=== PATIENT | female | born 1955 | race African-American/Black ===

== ENCOUNTER 2023-02-03 10:39 | Outpatient (CLI) | payer MEDICARE, SELFPAY ==
--- NOTE | ~2023-02-03 | XR_ITS ---
XR_[id number] 02/03/2023 12:52 Indication: Cervical radiculopathy Procedure: 3 view cervical spine Comparison: No prior studies for comparison. Findings: There is moderate multilevel uncinate and facet hypertrophy. No prevertebral soft tissue sw elling. Vertebral body heights are maintained. There is normal odontoid process. No fracture or traum atic malalignment. Lung apices are normal. Impression: 1: Moderate cervical spondylosis. Reviewed, dictated and finalized at location B. Impression: 1: Moderate cervical spondylosis.
[2023-02-03 11:24] LABS: Blood Urea Nitrogen 12 mg/dL (7-17); Estimated Glomerular Filt Rate > 60
== END 2023-02-03 10:40 | disposition home or self-care (01) ==
PROVIDERS: PCP Nurse Practitioner Family; Visit Provider Nurse Practitioner Family
DX: M47.22 Other spondylosis with radiculopathy, cervical region (principal); R07.9 Chest pain, unspecified
CPT/HCPCS: 36415; 72040; 82565; 84520

== ENCOUNTER 2023-12-23 14:58 | Outpatient (CLI) | payer MEDICARE, SELFPAY ==
--- NOTE | ~2023-12-23 | MM_ITS ---
EXAMINATION: MM screening erika BI w didi HISTORY: Screening TECHNIQUE: Craniocaudal and mediolateral oblique 3-D tomosynthesis images were obtained and synthetic 2-D images were generated. CAD analysis was submitted and interpreted. COMPARISON: No prior mammogram is available for comparison at this institution. BREAST PARENCHYMAL COMPOSITION: There are scattered areas of fibroglandular density. FINDINGS: Benign axillary lymph nodes are present bilaterally. Benign-appearing right breast mass con taining coarse calcifications present. There is no evidence of suspicious mass, calcification, or arc hitectural distortion to suggest malignancy in either breast. There has been no suspicious interval c hange. IMPRESSION: 1. No mammographic evidence of malignancy. 2. Recommend routine screening mammography in one year. BI-RADS Category 2: Benign finding(s). Reviewed, dictated and finalized at location A.
== END 2023-12-23 14:59 | disposition home or self-care (01) ==
PROVIDERS: PCP Nurse Practitioner Family; Visit Provider Nurse Practitioner Family
DX: Z12.31 Encounter for screening mammogram for malignant neoplasm of breast (principal)
CPT/HCPCS: 77063; 77067

== ENCOUNTER 2024-06-17 10:03 | Emergency (ER) | payer MEDICARE, SELFPAY ==
--- NOTE | ~2024-06-17 | XR_ITS ---
EXAMINATION: XR ankle RT min 3V, XR foot RT min 3V DATE: 06/17/2024 14:08 INDICATION: Right foot and ankle pain with difficulty walking TECHNIQUE: 1. Anteroposterior, mortise, additional oblique and lateral view of the right ankle were obtained. 2. Dorsoplantar, two oblique and lateral views of the right foot were obtained. COMPARISON: None. FINDINGS: Alignment of the right foot and ankle is normal. No fracture. Osteonecrosis with varying degrees of f lattening of the articular surfaces at the heads of the second-fifth metatarsals. There is also polya rticular osteoarthritis, severe at the second tarsal metatarsal joint, moderate at the first, third a nd fourth tarsal metatarsal joints, talonavicular, naviculocuneiform and first metatarsophalangeal duc ints. Mild to moderate osteoarthritis at the interphalangeal joints. Mild osteoarthritis at the right ankle, calcaneocuboid and fifth tarsal metatarsal joints. Moderate-sized Achilles calcaneal spur and small plantar calcaneal spur. There is diffuse soft tissue swelling about the ankle. IMPRESSION: 1. 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 Reviewed, dictated and finalized at location A. IMPRESSION: 1. Moderate polyarticular osteoarthritis at the right foot and chronic osteonec rosis at the heads of the second-fifth metatarsals.
[2024-06-17 10:12] VITALS: BP 168/75; PULSE 76; RESP 18; TEMP 36.1; O2SAT 100
--- NOTE | 2024-06-17 13:52 | ED.EXTPRO ---
HPI - Extremity Problem General Chief complaint: Extremity Problem,Nontraumatic Stated complaint: R FOOT PAIN X1 DAYS Time Seen by Provider: 06/17/24 12:50 History of Present Illness HPI Narrative: 68-year-old female present to the emergency department for evaluation for right ankle and right foot pain. Patient states that she began having foot pain since yesterday. Patient denies any specific fall or injury. Patient did notice that she does have some worsening right ankle swelling Related Data Allergies Allergy/AdvReac Type Severity Reaction Status Date / Time No Known Allergies Allergy Verified 06/17/24 10:07 Review of Systems Review of Systems: All systems reviewed & are unremarkable except as noted in HPI and below Exam Narrative: APPEARANCE: Well appearing, no pain, no distress, well-nourished. HEAD: normocephalic, atraumatic. EYES: PERRLA/EOMI, conjunctivae clear. NOSE: Normal no drainage NECK: Supple. No adenopathy, no masses. RESPIRATORY: Airway patent, respirations nonlabored. Clear to auscultation bilaterally, no rales, rhonchi, wheezing. CARDIOVASCULAR: Regular rate and rhythm without murmurs rubs or gallops. ABDOMINAL: Soft, nontender, nondistended, normal bowel sounds MUSCULOSKELETAL: Right lateral ankle swelling NEURO: Alert. Cranial nerves II through XII intact. Grossly intact SKIN: Warm, dry. Normal Color Course Vital Signs Vital signs: Vital Signs Temperature 97.0 F L 06/17/24 10:12 Pulse Rate 76 06/17/24 10:12 Respiratory Rate 18 06/17/24 10:12 Blood Pressure 168/75 H 06/17/24 10:12 Pulse Oximetry 100 06/17/24 10:12 Oxygen Delivery Room Air 06/17/24 10:12 Temperature 97.8 F 06/17/24 15:29 Pulse Rate 64 06/17/24 15:29 Respiratory Rate 17 06/17/24 15:29 Blood Pressure 130/64 06/17/24 15:29 Pulse Oximetry 98 06/17/24 15:29 Oxygen Delivery Room Air 06/17/24 10:12 MDM - Extremity (Nontraumatic) MDM Narrative Medical decision making narrative: 68-year-old female presented emergency department for evaluation for right foot right ankle pain. Patient denies any acute injury. X-rays did show osteoarthritis and possible osteonecrosis of the foot. Patient was provided an Ramez wrap and crutches for suspected ankle sprain due to the physical exam. Differential Diagnosis Differential diagnosis: Likely other (Ankle sprain, ankle fracture, foot sprain, foot fracture, osteoarthritis) Imaging Data Radiologist's impression: Impressions Ankle X-Ray 06/17/24 14:19 IMPRESSION: 1. 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 Foot X-Ray 06/17/24 14:19 IMPRESSION: 1. 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 Discharge Plan Discharge Clinical Impression: Osteoarthritis, Osteonecrosis, Ankle strain Patient Disposition: Home, Self-Care Condition: Stable Instructions: Antibiotic Form, Ankle Sprain (DC), Osteoarthritis (DC) Additional Instructions: Ramez wrap for increased ankle stability, crutches for limited weight-bearing. Have close follow-up with Orthopedics. If you have any worsening symptoms then please call or return to the emergency department. Follow-up/Referrals: Bobby Benjamin MD [Physician] - [facility],SLIM Granda [Primary Care Provider] -
[2024-06-17 15:29] VITALS: BP 130/64; PULSE 64; RESP 17; TEMP 36.6; O2SAT 98
== END 2024-06-17 15:34 | disposition home or self-care (01) ==
PROVIDERS: Emergency Provider Emergency Medicine; PCP Nurse Practitioner Family
DX: S96.911A Strain of unspecified muscle and tendon at ankle and foot level, right foot, initial encounter (principal); M19.071 Primary osteoarthritis, right ankle and foot; M87.874 Other osteonecrosis, right foot; X58.XXXA Exposure to other specified factors, initial encounter
CPT/HCPCS: 73610; 73630; 99283

== ENCOUNTER 2025-01-26 08:58 | Outpatient (CLI) | payer MEDICARE, SELFPAY ==
--- NOTE | ~2025-01-26 | MM_ITS ---
EXAMINATION: MM screening erika BI w didi HISTORY: Screening TECHNIQUE: Craniocaudal and mediolateral oblique 3-D tomosynthesis images were obtained and synthetic 2-D images were generated. CAD analysis was submitted and interpreted. COMPARISON: 12/23/2023 BREAST PARENCHYMAL COMPOSITION: Not dense: There are scattered areas of fibroglandular density. FINDINGS: There is no evidence of suspicious mass, calcification, or architectural distortion to sugg est malignancy in either breast. There has been no suspicious interval change. IMPRESSION: 1. No mammographic evidence of malignancy. 2. Recommend routine screening mammography in one year. BI-RADS Category 1: Negative Reviewed, dictated and finalized at location A.
--- NOTE | ~2025-01-26 | DEXA_ITS ---
Bone Density Report Name: JOHN HENDERSON Age: 69 Sex: Female Ethnicity: Black Date of : 1955 Indication: postmenopausal; screening for osteoporosis; height loss; Referring Provider: CHEYENNE, AMANDA Study: Bone densitometry was performed. Exam Date: January 26, 2025 Accession number: [id number] Bone Density: Region BMD T-score Z-score Classification AP Spine(L1-L4) 0.963 -0.8 0.6 Normal Femoral Neck (Left) 0.603 -2.2 -1.0 Osteopenia Total Hip (Left) 0.708 -1.9 -1.0 Osteopenia Femoral Neck (Right) 0.649 -1.8 -0.7 Osteopenia Total Hip (Right) 0.867 -0.6 0.0 Normal Total Hip Mean 0.788 -1.3 -0.5 Osteopenia World Health Organization criteria for BMD impression classify patients as: Normal (T-score at or above -1.0), Osteopenia (T-score between -1.0 and -2.5), or Osteoporosis (T-score at or below -2.5). 10-year Fracture Risk(1): Major Osteoporotic Fracture 4.9% Hip Fracture 0.9% Reported Risk Factors: [place] (Black), Neck BMD=0.603, BMI=39.2 (1) FRAX(R) Version 3.08. Fracture probability calculated for an untreated patient. Fracture probability may be lower if the patient has received treatment. Clinical Information Provided by Patient: Has used the following medications: Vitamin D Patient maximum height was 71 Menopause Age: 44 No regular weight bearing exercise Drinks caffeinated beverages Onset of menses at age 12 Number of children 8 Impression: The patient has low bone mass, based on the Left Femoral Neck T-score. The patient has an estimated ten-year risk of hip fracture of 0.9% and an estimated ten-year risk of major fracture of 4.9%, based on the WHO FRAX algorithm. Discussion: BONE DENSITY IS LOW AT ONE OR MORE SKELETAL SITES. This patient's lowest T-score is low at one or more skeletal sites. It meets the World Health Organization's (WHO) criteria for ?low bone mass? (T-score between -1.0 and -2.5). The patient's 10-year risk of fracture as calculated by FRAX is less than the threshold where pharmacological therapy is recommended by the National Osteoporosis Foundation (NOF). However, all treatment decisions require clinical judgment and consideration of individual patient factors, including patient preferences, comorbidities, previous drug use, risk factors not captured in the FRAX model (e.g., frailty, falls, vitamin D deficiency, increased bone turnover, interval significant decline in bone density) and possible under or overestimation of fracture risk by FRAX. The patient should follow a healthful lifestyle (good nutrition with adequate calcium and vitamin D, and appropriate weight-bearing exercise). Follow-Up: Consider repeating this study in 2 to 3 years to reassess this patient's status, or sooner if there is some new clinical indication. Reported by: JENNIFER on 01/26/2025 9:42:00 AM. Reviewed, dictated and finalized at location A.
--- OUTSIDE RECORDS SUMMARY | 2025-01-26 09:15 | XMS_ITS | Referral Summary ---
Author Organization [facility] Address [address] [place] [address] Care Team Providers Care Enterprise Mobility Architect Name Role Phone Americabrian Kalee SMALLS Primary Care Provider [phone] Allergies No known active allergies Medications ALPRAZolam (XANAX) 0.25 mg tablet Take 1 tablet (0.25 mg total) by mouth 3 (three) times a day as needed for anxiety 12 tablet 1 Active atorvastatin (LIPITOR) 80 mg tabletIndications :hyperlipidemia Take 1 tablet (80 mg total) by mouth daily 30 tablet 2 Active metFORMIN (GLUCOPHAGE) 1,000 mg tablet Take 1 tablet (1,000 mg total) by mouth 2 (two) times a day with meals 60 tablet 2 Active insulin glargine (LANTUS, SEMGLEE) 100 unit/mL vial for injectionIndicati ons:Diabetes Mellitus Inject 50 Units under the skin nightly 20 mL 2 Active losartan (COZAAR) 100 mg tablet Take 1 tablet (100 mg total) by mouth daily 30 tablet 2 Active apixaban (ELIQUIS) 5 mg tabletIndications :atrial fibrillation Take 1 tablet (5 mg total) by mouth every 12 (twelve) hours 60 tablet 2 Active dilTIAZem CD/XR/XT (CARDIZEM CD,DILACOR XR) 240 mg 24 hr capsule Take 1 capsule (240 mg total) by mouth daily 30 capsule 2 Active Active Problems Problem Noted Date Diagnosed Date Atrial fibrillation with RVR 09/01/2022 Assessment & Plan (09/01/2022 11:27 AM LIFE TEACHER): With significant palpitation with atrial fibrillation rapid ventricular response, rate now is well controlled on Cardizem IV will switch to oral Cardizem, and she needs to be on anticoagulation was started on Eliquis 5 mg twice daily Chest pain 12/06/2021 Hypertensive urgency 12/06/2021 Assessment & Plan (09/01/2022 11:27 AM LIFE TEACHER): Blood pressure now is well controlled, continue with Cardizem but was switched to oral, stop Norvasc and increase metoprolol and losartan Type 2 diabetes mellitus wit hout complication, with long-term current use of insulin 12/06/2021 Obesity, Class II, BMI 35-39.9 12/06/2021 Social History Tobacco Use Types Packs/Day Years Used Date Smoking Tobacco: Former Cigarettes 0.1 24 0 12/06/1973 - 12/06/1997 Smokeless Tobacco: Never Tobacco Cessation:Counseling Given: Yes Personal Safety Answer Date Recorded Have you ever been in or are you currently in a harmful physical or emotional relationship or is someone making you feel afraid or unsafe? Denies 05/05/2023 Comments No Sex and Gender Information Value Date Recorded Sex Assigned at Not on file Legal Sex Female 6:13 AM LIFE TEACHER Gender Identity Not on file Sexual Orientation Not on file Last Filed Vital Signs Vital Sign Reading Time Taken Comments Blood Pressure 157/81 05/05/2023 4:50 AM CDT Pulse 70 05/05/2023 4:50 AM CDT Temperature 36.7 C (98.1 F) 05/05/2023 12:25 AM CDT Respiratory Rate 15 05/05/2023 4:50 AM CDT Oxygen Saturation 96% 05/05/2023 4:50 AM CDT Inhaled Oxygen Concentration - - Weight 113 kg (249 lb 1.9 oz) 05/05/2023 12:25 A M CDT Height 172 cm (5' 7.72 ) 05/05/2023 12:25 AM CDT Body Mass Index 38.2 05/05/2023 12:25 AM CDT Plan of Treatment Not on file Procedures Procedure Name Priority Date/Time Associated Diagnosis Comments EGFR STAT 05/05/2023 12:17 AM CDT HEMOGLOBIN A1C STAT 12/06/2021 10:43 AM CDT LIPID PANEL Routine 12/06/2021 6:16 AM CDT from Last 3 Months or Most Recently Relevant to Health Maintenance Results * eGFR (05/05/2023 12:17 AM CDT) eGFR 103 mL/min/1. 73 m2 [facility]ENRI GUTI[facility]RRE[facility] Comment: Interpretive Data Reference Interval Normal >/= 90 mL/min/1.73m2 Mildly decreased* 60 - 89 mL/min/1.73m2 Mildly to moderately decreased 45 - 59 mL/min/1.73m2 Moderately to severely decreased 30 - 44 mL/min/1.73m2 Severely decreased 15 - 29 mL/min/1.73m2 Kidney Failure < 15 mL/min/1.73m2 *Relative to young adult level Estimated glomerular filtration rate is determined by the 2020 CKD-EPI equation recommended by the National Kidney Foundation (A Unifying Approach to GFR Estimation: Recommendations of the NKF-ASK Task Force on Reassessing the Inclusion of Race in Diagnosing Kidney Disease, JASN 2020). The CKD-EPI equation should not be used for patients with unstable renal function and has not been validated in children and those over 70. Current interpretive data was last reviewed 2021. Blood 05/05/2023 12:1 7 AM CDT 05/05/2023 12:20 AM CDT us Asaf Montanez MD LAB BLOOD ORDERABLES Gracie l Result [facility]ENRI GUTI[facility]RRE[facility] [address] [facility] Department [place] [address] * (ABNORMAL) Hemoglobin A1c (12/06/2021 10:43 AM CDT) Hgb A1C 8.6(H) 4.0 - 5.6 % [facility]ENRI GUTIÉRREZ Estimated Average Glucose 200 mg/dL HENRI GUTIÉRREZ Comment: The ADA recommends reporting an estimated Average Glucose (eAG) with all Hemoglobin A1c results using the equation derived from a study of 507 normal and diabetic adults. Minority populations were underrepresented and children were not included. (Diabetes Care 31:6189-9630, 2008). The eAG is not equivalent to a fasting glucose. Blood 12/06/2021 10:4 3 AM CDT 12/06/2021 11:02 AM CDT us Alverto Travis MD LAB BLOOD ORDERABLES Fi nal Result [facility]RI [facility]RRE[facility] [address] [facility] Department [place] [address] * Lipid panel (12/06/2021 6:16 AM CDT) Cholesterol 137 30 - 199 mg/dL [facility]ENRI GUTIÉRREZ Comment: Interpretive Data Ages < or = 19 years Acceptable: <170 mg/dL Borderline high: 170-199 mg/dL High: >or= 200 mg/dL Ages > or = 20 years Desirable: <200 mg/dL Borderline high: 200-239 mg/dL High: >or= 240 mg/dL Literature References: 1. Expert Panel on Integrated Guidelines for Cardiovascular Health and Risk Reduction in Children and Adolescents. Pediatrics 2011;128:S213 2. NCEP Expert Panel. Circulation 2004;110:227 Current Interpretive Data was last revised on 2018. Triglycerides 64 <=149 mg/dL [facility]ENRI GUTIÉRREZ Comment: Interpretive Data Ages < or = 9 years Acceptable: <75 mg/dL Borderline high: 75-99 mg/dL High: >or= 100 mg/dL Ages 10 to 20 years Acceptable: <90 mg/dL Borderline high: 90-129 mg/dL High: >or= 130 mg/dL Ages > or = 20 years Desirable: <150 mg/dL Borderline high: 150-199 mg/dL High: 200-499 mg/dL Very high: >or= 499 mg/dL Literature References: 1. Expert Panel on Integrated Guidelines for Cardiovascular Health and Risk Reduction in Children and Adolescents. Pediatrics 2011;128:S213 2. NCEP Expert Panel. Circulation 2004;110:227 Current Interpretive Data was last revised on 2018. HDL 60 >=40 mg/dL HENRI GUTIÉRREZ Comment: Interpretive Data Ages < or = 19 years Acceptable: >45 mg/dL Borderline low: 40-45 mg/dL Low: <40 mg/dL Ages > or = 20 years Desirable: >or= 60 mg/dL Low: <40 mg/dL Literature References: 1. Expert Panel on Integrated Guidelines for Cardiovascular Health and Risk Reduction in Children and Adolescents. Pediatrics 2011;128:S213 2. NCEP Expert Panel. Circulation 2004;110:227 Current Interpretive Data was last revised on 2018. LDL, calculated 64 <=129 mg/dL HENRI GUTIÉRREZ Comment: Interpretive Data Ages < or = 19 years Acceptable: <110 mg/dL Borderline high: 110-129 mg/dL High: >or= 130 mg/dL Ages > or = 20 years Optimal: <100 mg/dL Near optimal: 100-129 mg/dL Borderline high: 130-159 mg/dL High: >160 mg/dL Literature References: 1. Expert Panel on Integrated Guidelines for Cardiovascular Health and Risk Reduction in Children and Adolescents. Pediatrics 2011;128:S213 2. NCEP Expert Panel. Circulation 2004;110:227 Current Interpretive Data was last revised on 2018. Non-HDL Cholesterol 77 mg/dL HENRI GUTIÉRREZ Comment: Interpretive Data Ages < or = 19 years Acceptable: <120 mg/dL Borderline high: 120-144 mg/dL High: >145 mg/dL Ages > or = 20 years When triglycerides are >200 mg/dL, Non-HDL cholesterol is a secondary target of therapy with treatment goals that are 30 mg/dL greater than the LDL cholesterol target. Literature References: 1. Expert Panel on Integrated Guidelines for Cardiovascular Health and Risk Reduction in Children and Adolescents. Pediatrics 2011;128:S213 2. NCEP Expert Panel. Circulation 2004;110:227 Current Interpretive Data was last revised on 2018. Chol/HDL ratio 2 [facility]ENRI GUTIÉRREZ Blood 12/06/2021 6:16 AM CDT 12/06/2021 7:15 AM CDT us Christian Torre MD LAB BLOOD ORDERABLES Final Result [facility]RI GUTI[facility]RRE[facility] [address] [facility] [place] [address] from Last 3 Months or Most Recently Relevant to Health Maintenance Insurance [facility] [employer] [employer] [employer] [facility] [employer] [employer] Advance Directives For more information, please contact: [phone] * Full Code (Latest Code Status on File) Date Activated Date Inactivated Comments 09/01/2022 5:39 AM 09/02/2022 10:31 PM * Full Code Date Activated Date Inactivated Comments 12/06/2021 1:37 AM 12/06/2021 10:50 PM Care Teams Enterprise Mobility Architect Relationship Specialty Start Date End Date Kalee Modi NP PCP - General 05/03/20
--- OUTSIDE RECORDS SUMMARY | 2025-01-26 09:15 | XMS_ITS | Clinical Summary ---
Author Organization [facility] Address [address] [place] [address] Care Team Providers Care Cook'S Assistant Name Role Phone Americabrian Kalee SMALLS Primary Care Provider [phone] Allergies No known active allergies Medications ALPRAZolam [...] 09/01/2022 Assessment & Plan (09/01/2022 11:27 AM PROPOSAL CONSULTANT): With significant palpitation with atrial fibrillation rapid ventricular response, rate now is well controlled on Cardizem IV will switch to oral Cardizem, and she needs to be on anticoagulation was started on Eliquis 5 mg twice daily Chest pain 12/06/2021 Hypertensive urgency 12/06/2021 Assessment & Plan (09/01/2022 11:27 AM PROPOSAL CONSULTANT): Blood pressure now is well controlled, continue with Cardizem but was switched to oral, stop Norvasc and increase metoprolol and losartan Type 2 diabetes mellitus wit hout complication, with long-term current use of insulin 12/06/2021 Obesity, Class II, BMI 35-39.9 12/06/2021 Medical History Medical History Date Comments Diabetes mellitus (HCC) Hypertension Social History Tobacco Use Types Packs/Day Years [...] on file Legal Sex Female 6:13 AM PROPOSAL CONSULTANT Gender Identity Not on file Sexual Orientation Not on file Obstetrics History Last Filed Vital Signs Vital Sign Reading [...] 05/05/2023 12:25 AM CDT Plan of Treatment Health Maintenance Due Date Last Done Comments Albumin Creatinine Ratio, Urine 1955 Breast Cancer Screening-Mammogram 1955 Colon Cancer Screening-Colonoscopy 1955 Depression Screening 1955 Hepatitis C Screening 1955 Osteoporosis Screening-Bone Density Scan 1955 Dilated Eye Exam 1955 Foot Exam 1955 DTaP/Tdap/Td Vaccine (1 - Tdap) 1966 Hepatitis B Screening 1973 Pneumococcal vaccine 65+ (1 of 2 - PCV) 1974 Zoster Vaccine (1 of 2) 2005 Well Visit 65+ 2020 Hemoglobin A1C 06/08/2022 12/06/2021, 09/23, 01/28/2013 Lipid Panel 12/06/2022 12/06/2021, 01/21, 10/14/2017, Additional history exists Fall Risk Assessment 09/02/2023 09/02/2022 eGFR 05/05/2024 05/05/2023, 02/0 12/2022, 09/02/2022, Additional history exists Influenza Vaccine (Season Ended) 2025 Procedures Procedure Name Priority Date/Time Associated Diagnosis [...] of Race in Diagnosing Kidney Disease, JASN 202). The CKD-EPI equation should not be used for patients with unstable renal function and has not been validated in children and those over 70. Current interpretive data was last reviewed 2021. Blood 05/05/2023 12:1 7 AM CDT 05/05/2023 12:20 AM CDT us Asaf Montanez MD LAB BLOOD ORDERABLES Gracie l Result Performing Organization Address [facility] Co de Phone Number [address] [place] [address] * (ABNORMAL) Hemoglobin A1c (12/06/2021 10:43 AM CDT) Hgb A1C 8.6(H) 4.0 - 5.6 % HENRI Estimated Average Glucose 200 mg/dL HENRI Comment: The ADA recommends reporting an estimated Average Glucose (eAG) with all Hemoglobin A1c results using the equation derived from a study of 507 normal and diabetic adults. Minority populations were underrepresented and children were not included. (Diabetes Care 31:1354-1546, 2008). The eAG is not equivalent to a fasting glucose. Blood 12/06/2021 10:4 3 AM CDT 12/06/2021 11:02 AM CDT us Alverto Travis MD LAB BLOOD ORDERABLES Fi nal Result Performing Organization Address [facility] Co de Phone Number [facility] [address] [place] [address] [place], [place] [id number] * Lipid panel (12/06/2021 6:16 AM CDT) Cholesterol 137 30 - 199 mg/dL HENRI Comment: Interpretive Data Ages < or = [...] on 2018. Triglycerides 64 <=149 mg/dL HENRI Comment: Interpretive Data Ages < or = [...] on 2018. HDL 60 >=40 mg/dL HENRI Comment: Interpretive Data Ages < or = [...] 2018. LDL, calculated 64 <=129 mg/dL HENRI Comment: Interpretive Data Ages < or = [...] MD LAB BLOOD ORDERABLES Final Result HENRI [address] [facility] Department [place] [address] from Last 3 Months or Most Recently Relevant to Health Maintenance Insurance [facility] MEDIC[facility] ADVANTAGE [employer] [facility] MEDIC[facility] ADVANTAGE Advance Directives For more information, please contact: [phone] * Full Code (Latest Code Status on File) Date Activated Date Inactivated Comments 09/01/2022 5:39 AM 09/02/2022 10:31 PM * Full Code Date Activated Date Inactivated Comments 12/06/2021 1:37 AM 12/06/2021 10:50 PM Care Teams Cook'S Assistant Relationship Specialty Start Date End Date Kalee Modi NP PCP - General 05/03/20
--- OUTSIDE RECORDS SUMMARY | 2025-01-26 09:16 | XMS_ITS ---
Author Organization [address] 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 06/14/2024 Type 2 diabetes mellitus with other diabetic neurological complication (ICD-10 - E11.49) She was advised to keep her blood sugar under control. She is to monitor her feet routinely. 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 Recommended That she rest and ice the area as needed for pain. She can use topical pain cream as needed. I discussed that she may need to get prefabricated inserts to wear in her work shoes at some point. A felt pad was added underneath her 1st MPJ, she felt comfortable with this adjustment. I discussed potential application of a steroid injection in the joint, if the pain worsens, however this would elevate her blood sugar for a few days. All questions and concerns were addressed. 06/14/2024 Lower extremity nikki a (ICD-10 - R60.0) She was advised to use a compression sock for the swelling and is to elevate her legs as much as possible for the swelling. 06/14/2024 Other Plan Of Treatment Treatment Notes Assessment Notes Callus of foot Considering the asso ciated comorbidities and physical exam findings today, this patient is at substantial risk of developing serious foot complications in the absence of regular and professional palliative foot care. Type 2 diabetes mellitus wit h other diabetic neurological complication She was advised to keep her blood sugar under control. She is to monitor her feet routinely. Arthritis of first metatarso phalangeal (MTP) joint Evaluation today included a review of medical history, review of systems, discussion of exam findings, and review of diagnoses and treatment options. Recommended That she rest and ice the area as needed for pain. She can use topical pain cream as needed. I discussed that she may need to get prefabricated inserts to wear in her work shoes at some point. A felt pad was added underneath her 1st MPJ, she felt comfortable with this adjustment. I discussed potential application of a steroid injection in the joint, if the pain worsens, however this would elevate her blood sugar for a few days. All questions and concerns were addressed. Lower extremity edema She was advised to use a compression sock for the swelling and is to elevate her legs as much as possible for the swelling. Next Appt Details Follow Up: 10-12 weeks or co ntact office PRN with any concerns, Reason: Procedure Notes * Category Sub-Category Detail Notes PALLIATIVE FOOT CARE: Callus paring: (45950) Le ss than five calluses as noted above reduced with a sterile scalpel blade Nail debride (54495): Debridement of fiv e or less mycotic and/or hypertrophic nails, utilizing manual and electric debridement the affected nails were reduced the nails in length and thickness with curettage of debris from nail margins performed as needed. Nail thickness reduced by:, 10% Dystrophic nail trim (G0127) All dystrop hic nails reduced in length and thickness with curettage of debris from nail margins as needed Progress Notes * Jennifer BRICEOB:1955 ( 68 yo F)Acc No.[id number]:06/14/2024 Progress Notes Patient: Cruzito BRUNNER Provider: Olivia Burch DPM :1955 A ge:68 Y S ex:Female Date:06/14/2024 Address:[address] [place] [address] Pcp:Kalee Modi TREE AND SHRUB TECHNICIAN Subjective: * Chief Complaints: * L T foot pain * HPI: Negar Varela assisting with visit:: HPI/Rooming: Maggie byrne. Greer craven reason for visit:: Follow-up: [age] y/o diabetic female RTO for recurrent left foot pain. Today pt reports pain in the left big toe. She states that it hurts when she is at work. She will also sometimes get some swelling in the left ankle. She is still wearing her inserts and using the pain cream. Last HA1c of 7.. * ROS: * MULTI-SYSTEM REVIEW:: Nausea, fever or chillls d enies. A ny change in medications since last visit? d enies. A ny changes in medical history/hospitalizations? d enies. * Medical History: * Medications: T akingLosartan Potassium Metoprolol Tartrate amLODIPine Besylate Ozempic metFORMIN HCl Medication List reviewed and reconciled with the patientTaking Losartan Potassium Taking Metoprolol Tartrate Taking amLODIPine Besylate Taking Ozempic Taking metFORMIN HCl Medication List reviewed and reconciled with the patient * Allergies: N .K.D.A.no[Allergies Verified] Objective: * Vitals: W t:261lbs, Wt-k.39 kg, Ht: 68 in, BMI:39.68Index. * Examination: G eneral Examination: Constitutional / Appearance: N o acute distress , Well nourished, Appropriate personal hygiene. Mental status: C ooperative, Oriented to person, place and time, Mood and affect: normal, Judgement and intellect: normal with appropriate response to questions. Shoes today: N ew Balance. L ower Extremity VASCULAR: : Pulses: D P pulse diminished b/l , PT pulse diminished b/l.? Temperature gradient: s lightly decreased from proximal to distal, bilateral. Pedal hair: s parse, bilateral. Venous insufficiency edema: m ild, bilateral foot. Capillary refill at distal toes l ess than 3 seconds , bilateral. L ower Extremity DERM: : Skin: S lightly dry, no suspicious lesions, without interdigital maceration, no open sores, bilateral. Nails: N ail plates of TA and T5 are elongated, relatively thickened, slightly discolored, incurvated with mild subungual debris. , Remaining nails appear elongated and dystrophic with abnormal shape, periungual debris, subungual hyperkeratosis.. Hyperkeratotic lesions LEFT foot: s ub 5th MTH, , sub 2nd MTH, sub 4th MTH. Hyperkeratotic lesions RIGHT foot: n o significant hpk lesions noted. L ower Extremity NEURO: : General sensation appears i ntact , bilateral. Muscle tone w ithin normal limits , bilateral. Monofilament test (10 gram pressure) E xam of 01/12/2024: revealed intact sensation to, entire foot, bilateral. Vibration perception: E xam of 01/12/2024 noted significantly diminished per evaluation with 128Hz tuning fork applied to distal hallux compared to ipsilateral medial malleolus @ right foot, noted intact per evaluation with 128Hz tuning fork applied to distal hallux compared to ipsilateral medial malleolus @ left foot. L ower Extremity MSK: : Gait Gait unremarkable with normal posture, propulsion and balance. Foot type: B ilateral lower extremity exhibits pes planus foot type with decreased medial arch. Left lower extremity inspection and palpation: N o palpable masses or nodules noted. Some discomfort with palpation and range of motion of the first metatarsophalangeal joint. Slightly decreased range of motion noted to the first metatarsophalangeal joint. No significant localized edema noted.. Right lower extremity inspection and palpation: N o palpable masses or nodules noted.No acute pain noted.. Assessment: * Assessment: 1. C allus of foot - L84 2 . T ype 2 diabetes mellitus with other diabetic neurological complication - E11.49 (Primary) 3 . F oot pain, left - M79.672 4 . O nychogryphosis - L60.2 5 . N ail dystrophy - L60.3 & #160; 6 . A rthritis of first metatarsophalangeal (MTP) joint - M19.079 7 .?Lower extremity edema - R60.0 Plan: * Treatment: 2. C allus of foot Notes: Considering the associated comorbidities and physical exam findings today, this patient is at substantial risk of developing serious foot complications in the absence of regular and professional palliative foot care. 3. A rthritis of first metatarsophalangeal (MTP) joint Notes: Evaluation today included a review of medical history, review of systems, discussion of exam findings, and review of diagnoses and treatment options. Recommended That she rest and ice the area as needed for pain. She can use topical pain cream as needed. I discussed that she may need to get prefabricated inserts to wear in her work shoes at some point. A felt pad was added underneath her 1st MPJ, she felt comfortable with this adjustment. I discussed potential application of a steroid injection in the joint, if the pain worsens, however this would elevate her blood sugar for a few days. All questions and concerns were addressed. 4. L ower extremity edema Notes: She was advised to use a compression sock for the swelling and is to elevate her legs as much as possible for the swelling. * Procedures: P ALLIATIVE FOOT CARE:: Callus paring: ( 92876) Less than five calluses as noted above reduced with a sterile scalpel blade. Nail debride (63480): D ebridement of five or less mycotic and/or hypertrophic nails, utilizing manual and electric debridement the affected nails were reduced the nails in length and thickness with curettage of debris from nail margins performed as needed. Nail thickness reduced by:, 10%. Dystrophic nail trim (G0127) A ll dystrophic nails reduced in length and thickness with curettage of debris from nail margins as needed. * Procedure Codes: 1 1056 TRIM SKIN LESIONS, 2 TO 029028 DEBRIDE NAIL, 1-5, Modifiers: 59 G0127 TRIMMING DYSTROPHIC NAILS ANY #, Modifiers: 59 3051F HG A1C>EQUAL 7.0%<8.0% * Follow Up: 1 0-12 weeks or contact office PRN with any concerns * Images: * Sign off status: Completed true * Provider: Olivia Burch DPM Date: 0 06/14/2024 Generated for Clinton kellogg/Aba/Chary on: 0 01/26/2025 09:15 AM CDT History and Physical Notes * HPI (History of Present Illness) Category Sub-Category Detail Notes Category Not es Primary reason for visit: Follow-up: 68 y/o diabetic female RTO for recurrent left foot pain. Today pt reports pain in the left big toe. She states that it hurts when she is at work. She will also sometimes get some swelling in the left ankle. She is still wearing her inserts and using the pain cream. Last HA1c of 7. MA assisting with visit: HPI/Rooming: Chastity Examination Category Sub-Category Detail Notes Category Not es General Examination Mental status: Cooperative, Oriented to person, place and time, Mood and affect: normal, Judgement and intellect: normal with appropriate response to questions Shoes today: New Balance Constitutional / Appearance: No acute di stress , Well nourished, Appropriate personal hygiene Lower Extremity VASCULAR: Venous insufficiency edema: mild, bilateral foot Pulses: DP pulse diminished b/l , PT pulse diminished b/l Temperature gradient: slightly decreased from proximal to distal, bilateral Pedal hair: sparse, bilateral Capillary refill at distal toes less inez n 3 seconds , bilateral Lower Extremity NEURO: Monofilament test (10 gram pressure) Exam of 01/12/2024: revealed intact sensation to, entire foot, bilateral Vibration perception: Exam of 01/12/2024 noted significantly diminished per evaluation with 128Hz tuning fork applied to distal hallux compared to ipsilateral medial malleolus @ right foot, noted intact per evaluation with 128Hz tuning fork applied to distal hallux compared to ipsilateral medial malleolus @ left foot General sensation appears intact , bilat eral Muscle tone within normal limits , bilateral Lower Extremity MSK: Foot type: Bilateral l ower extremity exhibits pes planus foot type with decreased medial arch Left lower extremity inspect ion and palpation: No palpable masses or nodules noted. Jason e discomfort with palpation and range of motion of the first metatarsophalangeal joint. Slightly decreased range of motion noted to the first metatarsophalangeal joint. No significant localized edema noted. Right lower extremity inspec tion and palpation: No palpable masses or nodules noted.No a cute pain noted. Gait Gait unremarkable wi th normal posture, propulsion and balance Lower Extremity DERM: Skin: Slightly d ry, no suspicious lesions, without interdigital maceration, no open sores, bilateral Nails: Nail plates of TA an d T5 are elongated, relatively thickened, slightly discolored, incurvated with mild subungual debris. , Remaining nails appear elongated and dystrophic with abnormal shape, periungual debris, subungual hyperkeratosis. Hyperkeratotic lesions LEFT foot: sub 5t h MTH, , sub 2nd MTH, sub 4th MTH Hyperkeratotic lesions RIGHT foot: no si gnificant hpk lesions noted
--- OUTSIDE RECORDS SUMMARY | 2025-01-26 09:16 | XMS_ITS | CONTINUITY OF CARE DOCUMENT ---
Author Name victoria kessler Address Unknown Organization [facility] Address [address] [place] [address] Phone [phone] Care Team Providers Care Tumor Registrar Name Role Phone Ruthie Pearson MD Unavailable Ruthie Pearson MD Unavailable INSURANCE PROVIDERS Payer name Policy type / Coverage type Calvin red republican ID [facility] COM[facility]TE [facility] [id number] (PPO C-SNP) [employer] insurance Amen. [id number]
--- OUTSIDE RECORDS SUMMARY | 2025-01-26 09:16 | XMS_ITS ---
Author Organization 1 OF [facility] Address [address] [place] [address] Care Team Providers Care Boiler Washer Name Role Phone Kalee Modi NP Primary Care Provider Harriet Lambert Unavailable [phone] REASON FOR VISIT DFC (Diabetic foot care) Encounters Encounter Location Date Provider Diagnosis 1 OF [facility] N[facility] [address] [address] 03/29/2024 Harriet Burch Nerve pain M79.2 ; Type 2 diabetes mellitus with other diabetic neurological complication E11.49 ; Callus of foot L84 and Foot pain, left M79.672 Assessments Encounter Date Diagnosis (ICD Code) Assessment Notes Treatment Notes Treatment Clinical Notes Section Notes 03/29/2024 Nerve pain (ICD-10 - M79.2) 03/29/2024 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 03/29/2024 Callus of foot (ICD-10 - L84) 03/29/2024 Foot pain, left (ICD-10 - M79.672) Plan Of Treatment Treatment Notes Assessment Notes Type 2 diabetes mellitus wit h other diabetic neurological complication Considering the associated comorbidities and physical exam findings today, this patient is at substantial risk of developing serious foot complications in the absence of regular and professional palliative foot care. Next Appt Details Follow Up: 10-12 weeks or co ntact office PRN with any concerns, Reason: Procedure Notes * Category Sub-Category Detail Notes PALLIATIVE FOOT CARE: Callus paring: (56940) Le ss than five calluses as noted above reduced with a sterile scalpel blade Progress Notes * Jennifer BRICEOB:1955 ( 69 yo F)Acc No.[id number]:03/29/2024 Progress Note Patient: Cruzito BRUNNER Provider: Olivia Burch DPM :1955 A ge:68 Y S ex:Female Date:03/29/2024 Address:[address] [place] [address] Pcp:Kalee Modi BODY SHOP MECHANIC Subjective: * Chief Complaints: * 1 . DFC (Diabetic foot care). * HPI: Negar Varela assisting with visit:: HPI/Rooming: . ..... P [facility] reason for visit:: Follow-up: [age] y/o diabetic female RTO for routine foot care. Pt reports no acute issues with nails or calluses today. L ast HA1c of. * Medical History: Objective: * Vitals: * Examination: G eneral Examination: Constitutional / Appearance: N o acute distress , Well nourished, Appropriate personal hygiene. Mental status: C ooperative, Oriented to person, place and time, Mood and affect: normal, Judgement and intellect: normal with appropriate response to questions. Shoes today: , XXXXXX. L ower Extremity VASCULAR: : Pulses: D [...] maceration, no open sores, bilateral. Nails: N ails appear well trimmed at this time.. Hyperkeratotic lesions LEFT foot: s ub 5th MTH, plantar-lateral foot - pain with palpation. Hyperkeratotic lesions RIGHT foot: n o significant [...] o palpable masses or nodules noted. Some mild discomfort with palpation along the plantar aspect of the foot.. Right lower extremity inspection and palpation: N o palpable masses or nodules noted.No acute pain noted.. Assessment: * Assessment: 1. N erve pain - M79.2 2 . T ype 2 diabetes mellitus with other diabetic neurological complication - E11.49 (Primary) 3 . C allus of foot - L84 ?4. F oot pain, left - M79.672 Plan: * Treatment: * Procedures: P ALLIATIVE FOOT CARE:: Callus paring: ( 60662) Less than five calluses as noted above reduced with a sterile scalpel blade. * Procedure Codes: 1 1056 TRIM SKIN LESIONS, 2 TO 4, 3044F HG A1C LEVEL LT 7.0% * Follow Up: 1 0-12 weeks or contact office PRN with any concerns * Images: * Electronic signature of Esther Burch DPM on 01/26/2025 at 09:16 AM CDT Sign off status: Pending * Provider: Olivia Burch DPM Date: 0 03/29/2024 Generated for Clinton kellogg/Aba/Chary on: 0 01/26/2025 09:16 AM CDT History and Physical Notes * HPI (History of Present Illness) Category Sub-Category Detail Notes Category Not es Primary reason for visit: Follow-up: 68 y/o diabetic female RTO for routine foot care. Pt reports no acute issues with nails or calluses today. Last HA1c of MA assisting with visit: HPI/Rooming: ..... Examination Category Sub-Category Detail Notes Category Not es General Examination Mental status: Cooperative, Oriented to person, place and time, Mood and affect: normal, Judgement and intellect: normal with appropriate response to questions Shoes today: , XXXXXX Constitutional / Appearance: No acute di stress [...] palpable masses or nodules noted. Jason e mild discomfort with palpation along the plantar aspect of the foot. Right lower extremity inspec tion and palpation: No palpable masses or nodules noted.No a cute pain noted. Gait Gait unremarkable wi th normal posture, propulsion and balance Lower Extremity DERM: Skin: Slightly d ry, no suspicious lesions, without interdigital maceration, no open sores, bilateral Nails: Nails appear well tr immed at this time. Hyperkeratotic lesions LEFT foot: sub 5t h MTH, plantar-lateral foot - pain with palpation Hyperkeratotic lesions RIGHT foot: no si gnificant hpk lesions noted
--- OUTSIDE RECORDS SUMMARY | 2025-01-26 09:16 | XMS_ITS ---
Author Organization 1 OF [facility] Address [address] [place] [address] Care Team Providers Care Oceanographer Assistant Name Role Phone Ly SMALLS, Kalee Primary Care Provider Harriet Lambert Unavailable [phone] REASON FOR VISIT rx Encounters Encounter Location Date Provider Diagnosis 1 OF [facility] [address] [place] [address] 01/22/2024 Harriet Burch Plan Of Treatment No Information Progress Notes * Carina HENDERSONZullyOB:1955 ( 68 yo F)Acc No.[id number]:01/22/2024 Patient: Cruzito BRUNNER :1955 A ge:68 Y S ex:Female Address:[address] [place] [address], [address] * true * Date: Generated for Clinton kellogg/Aba/eTransmitting on: 0 01/26/2025 09:16 AM CDT
--- OUTSIDE RECORDS SUMMARY | 2025-01-26 09:16 | XMS_ITS | Patient Health Record ---
Author Organization [address] [facility] Address [address] [place] [address] Care Team Providers Care Sas Programmer Analyst Name Role Phone Ly SMALLS, Kalee Primary Care Provider Harriet Lambert Unavailable [phone] Allergies No Known Allergies Reason For Referral No Information Medications Medication SIG (Take, Route, Fr equency, Duration) Notes Start Date End Date Status Ozempic Active metFORMIN HCl Active Losartan Potassium A ctive Metoprolol Tartrate Active amLODIPine Besylate Active Social History Tobacco Use: Social History Observation Description Date Details (start date - stop date) Never Smoker NA - NA Tobacco Use/Smoking Question Answer Notes Are you a nonsmoker Problems Problem Type SNOMED Code ICD Code Onset Dates Problem Status W/U Status Risk Notes Problem 40585210 Type 2 diabetes mellitus with other diabetic neurological complication (E11.49) Active confirmed Problem 0848931037956163 Arthritis of fo ot, left (M19.072) Active confirmed Problem 4709601254668535 Arthritis of fo ot, right (M19.071) Active confirmed Problem 937466081 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 06/14/2024 Other Plan Of Treatment No Information Insurance Providers Payer Name Payer Address Payer Phone Subscriber Number Group Number Insured Name Patient Relationship to Insured Coverage Start Date Coverage End Date [employer] Medicare Complete [address] [address] [place] [address] [id number] Cruzito Brice Self - patient is the insured [facility] [address] [address] [place] [address] [id number] Cruzito Brice Self - patient is the insured Medical (General) History Medical History History ICD Code Depression, Diabetes, High blood pressur e, Surgical History Surgery Date(Month/Year)
--- OUTSIDE RECORDS SUMMARY | 2025-01-26 09:17 | XMS_ITS | Encounter Summary ---
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 us Historical Provider [facility] Final Result documented in this encounter Visit Diagnoses Not on filedocumented in this encounter Additional Health Concerns Infection Onset Date Last Indicated Resolved Time COVID: Suspected 04/02/2021 04/02/2021 04/05/2021 10:12 AM CDT documented as of this encounter Care Teams Bundle Tier And Labeler Relationship Specialty Start Date End Date Kalee Modi NP PCP - General 05/03/20 documented as of this encounter
--- OUTSIDE RECORDS SUMMARY | 2025-01-26 09:17 | XMS_ITS | Encounter Summary ---
Author Organization 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 us Historical Provider [facility] Final Result documented in this encounter Visit Diagnoses Not on filedocumented in this encounter Additional Health Concerns Infection Onset Date Last Indicated Resolved Time COVID: Suspected 04/02/2021 04/02/2021 04/05/2021 10:12 AM CDT documented as of this encounter Care Teams Restaurant General Manager Relationship Specialty Start Date End Date Kalee Modi NP PCP - General 05/03/20 documented as of this encounter
--- OUTSIDE RECORDS SUMMARY | 2025-01-26 09:17 | XMS_ITS | Data Portability ---
[facility] Address [address] [place] [address] Care Team Providers Care Design Verification Engineer Name Role Phone AMANDA QUINN Primary Care Provider DAIN REYNOLDS Shoe Planner Assessment No assessment recorded. Plan of Treatment Reminders Order Date Submit Date Provider Last Modified By Organization Details Last Modified Time Details Appointments ANY 15 2024 04:45P M Amanda Quinn, TOURISM RADIO PRESENTER-Luciana Not available Not available Not available Lab HbA1c (hemoglob in A1c), blood 2023 024 [email or web address] In-Office Order, Internal Use Only DO Not Attach Compendium DO Not Attach Compendium, Do Not Delete/merge, [id number] 08/02/2024 17:11:29 HbA1c (hemoglob in A1c), blood 2023 024 [email or web address] In-Office Order, Internal Use Only DO Not Attach Compendium DO Not Attach Compendium, Do Not Delete/merge, [id number] 01/26/2024 17:17:26 Referral nutrition ist/sal bryant referral - DM2, needs nutrition guidance 2024 025 [email or web address] [facility] Dinkey Engine Firer Nutrition Dietitian, [address] [place], [address], 01/10/2025 15:42:27 gastroent erologist referral - due for screening 2024 025 JESUS Ching MD, [address] [place], [address], 12/30/2024 15:13:37 sleep medicine referral - PHIL, needs new CPAP 2023 024 [facility] - Pulmonology, Pulmonary & Sleep Medicine, [address], [address], [place], [address], 01/17/2025 09:37:49 Procedures None recorded. Surgeries None recorded. Imaging bone density 2023 [facility] (Mammography) , [address], [place], [address], 01/26/2025 09:38:35 Medication Orders famotidin e 40 mg tablet 2024 025 [facility][id number], [address], [place], [id number], 10/26/2024 17:56:21 vortioxet ine 10 mg tablet 2024 025 AND[facility][id number], [address], [place], [phone], 10/26/2024 17:53:29 docusate sodium 100 mg capsule 2023 024 [facility] #[id number], [address], [place], [id number], 06/30/2024 17:52:25 Ozempic 2 mg/dose (8 mg/3 mL) subcutane ous pen injector 2023 024 [id number], [address], [place], [id number], 01/26/2024 17:17:57 Patient TargetsNo targets recorded. Patient Instructions Encounter Date Encounter Id Patient Instructions Last Modified By Organization Details Last Modified Time 08/02/2024 [id number] A healthy lifestyle: [email or web address] Not available 08/19/2024 22:35:42 10/26/2024 [id number] A healthy lifestyle: care instructions Not available 11/25/2024 20:06:11 advance care planning: care instructions Not available 10/26/2024 17:49:12 preventing falls : care instructions [facility] Not available 10/26/2024 17:49:12 eating healthy foods: care instructions [facility] Not available 10/26/2024 17:49:12 Reason for Referral Sleep Medicine Referral for Obstructive sleep apnea syndrome PHIL, needs new CPAP Referring Physician: Amanda Quinn Superintendent Meters, Encounter Date: 06/30/2024 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 Screening for malignant neoplasm of colon due for screening Referring Physician: Amanda Quinn Superintendent Meters, Encounter Date: 10/26/2024 Welder Fitter Apprentice/dietitian Refer ral for Diabetes mellitus DM2, needs nutrition guidance Referring Physician: Amanda Quinn Superintendent Meters, Encounter Date: 10/26/2024 Results Created Date Observation Date Name Description Value Unit Range Abnormal Flag Note LastModifiedBy Organization Detail LastModifiedTime 01/26/20 24 01/26/2024 HbA1c (hemo globi n A1c), blood HbA1c 7.7 Not Available In-Office Order Internal Use Only DO Not Attach Compendium DO Not Attach Compendium, Do Not Delete/merge, [id number] 01/26/2024 17:17:18 08/02/20 24 08/02/2024 HbA1c (hemo globi n A1c), blood HbA1c 7.0 Not Available In-Office Order Internal Use Only DO Not Attach Compendium DO Not Attach Compendium, Do Not Delete/merge, [id number] 08/02/2024 16:41:04 11/08/19 25 11/08/2024 COMPR EHENS OSMAR METAB OLIC PANEL sodium 141 mmol/ L 134-14 [address] [facility] (Lab) [address] [place], [address], 11/08/2024 21:21:58 11/08/19 25 11/08/2024 COMPR EHENS OSMAR METAB OLIC PANEL potassium 4.1 mmol/ L 3.5-5. 2 normal Not Available [facility] [address] [place], [address], 11/08/2024 21:21:58 11/08/19 25 11/08/2024 COMPR EHENS OSMAR METAB OLIC PANEL chloride 100 mmol/ L 96-106 normal Not Available [facility] (Lab) [address] [place], [address], 11/08/2024 21:21:58 11/08/19 25 11/08/2024 COMPR EHENS OSMAR METAB OLIC PANEL carbon dioxide 30 mmol/ L 20-29 high Not Available [facility] (Lab) [address], [place], [address], 11/08/2024 21:21:58 11/08/19 25 11/08/2024 COMPR EHENS OSMAR METAB OLIC PANEL anion gap 16.0 mmol/ L Not Available [facility] (Lab) [address] [place], [address], 11/08/2024 21:21:58 11/08/19 25 11/08/2024 COMPR EHENS OSMAR METAB OLIC PANEL blood urea nitrogen 7 mg/dL 8-27 low Not Available [facility] [address], [place], [address], 11/08/2024 21:21:58 11/08/19 25 11/08/2024 COMPR EHENS OSMAR METAB OLIC PANEL creatinine 0.50 mg/dL 0.76-1 .27 low Not Available [facility] (Lab) [address] [place], [address], 11/08/2024 21:21:58 11/08/19 25 11/08/2024 COMPR EHENS OSMAR METAB OLIC PANEL glomerular filtration rate 101 mL/mi n/1 Not Available [facility] ([facility]) [address] [place], [address], 11/08/2024 21:21:58 11/08/19 25 11/08/2024 COMPR EHENS OSMAR METAB OLIC PANEL BUN creatinine ratio 14 10-28 normal Not Available [facility] [address] [place], [address], 11/08/2024 21:21:58 11/08/19 25 11/08/2024 COMPR EHENS OSMAR METAB OLIC PANEL glucose 158 mg/dL 70-99 high Not Available [facility] (Lab) [address] [place], [address], 11/08/2024 21:21:58 11/08/19 25 11/08/2024 COMPR EHENS OSMAR METAB OLIC PANEL osmolality calculated 282 280-30 [address] [facility] (Lab) [address] [place], [address], 11/08/2024 21:21:58 11/08/19 25 11/08/2024 COMPR EHENS OSMAR METAB OLIC PANEL calcium 9.3 mg/dL 8.7-10 .3 normal Not Available [facility] (Lab) [address] [place], [address], 11/08/2024 21:21:58 11/08/19 25 11/08/2024 COMPR EHENS OSMAR METAB OLIC PANEL bilirubin total 0.3 mg/dL 0.0-1. 2 normal Not Available [facility] (Lab) [address] [place], [address], 11/08/2024 21:21:58 11/08/19 25 11/08/2024 COMPR EHENS OSMAR METAB OLIC PANEL AST aspartate aminotransfe rase 13 IU/L 0-40 normal Not Available [facility] (Lab) [address] [place], [address], 11/08/2024 21:21:58 11/08/19 25 11/08/2024 COMPR EHENS OSMAR METAB OLIC PANEL ALT (alanine aminotransfe rase) 8 IU/L 0-32 normal Not Available [facility] (Lab[facility] [address], [place], [address], 11/08/2024 21:21:58 11/08/19 25 11/08/2024 COMPR EHENS OSMAR METAB OLIC PANEL total protein 6.9 g/dL 6.0-8. 5 normal Not Available [facility] (Lab) [address] [place], [address], 11/08/2024 21:21:58 11/08/19 25 11/08/2024 COMPR EHENS OSMAR METAB OLIC PANEL albumin level 4.1 g/dL 3.8-4. 8 normal Not Available [facility] (Lab) [address], [place], [address], 11/08/2024 21:21:58 11/08/19 25 11/08/2024 COMPR EHENS OSMAR METAB OLIC PANEL globulin 2.8 g/dL 1.5-4. 5 normal Not Available [facility] (Lab) [address], [place], [address], 11/08/2024 21:21:58 11/08/19 25 11/08/2024 COMPR EHENS OSMAR METAB OLIC PANEL albumin globulin ratio 1.0 1.2-2. 2 low Not Available [facility] (Lab) [address], [place], [address], 11/08/2024 21:21:58 11/08/19 25 11/08/2024 COMPR EHENS OSMAR METAB OLIC PANEL alkaline phosphatase 131 IU/L 44-121 high Not Available [facility] (Lab) [address] [place], [address], 11/08/2024 21:21:58 11/08/19 25 11/08/2024 LIPID PANEL triglyceride s 59 mg/dL 0-149 normal Not Available [facility] [address] [place], [address], 11/08/2024 21:22:00 11/08/19 25 11/08/2024 LIPID PANEL cholesterol 170 mg/dL 100-19 9 normal Not Available [facility] (Lab) [address] [place], [address], 11/08/2024 21:22:00 11/08/19 25 11/08/2024 LIPID PANEL LDL cholesterol 102 mg/dL 0-99 high Not Available [facility] ([facility] [address], [place], [address], 11/08/2024 21:22:00 11/08/19 25 11/08/2024 LIPID PANEL VLDL cholesterol (calc) 12 mg/dL 5-40 normal Not Available [facility] (Lab) [address], [place], [address], 11/08/2024 21:22:00 11/08/19 25 11/08/2024 LIPID PANEL HDL cholesterol 66 mg/dL 40-999 normal Not Available [facility] ([facility]) [address], [place], [address], 11/08/2024 21:22:00 11/08/19 25 11/08/2024 LIPID PANEL LDL HDL ratio 1.5 0-3.2 normal Not Available [facility] (Lab) [address], [place], [address], 11/08/2024 21:22:00 11/08/19 25 11/08/2024 LIPID PANEL chol HDL ratio 3.0 mg/dL 0-4.4 normal Not Available [facility] (Lab) [address] [place], [address], 11/08/2024 21:22:00 06/17/20 24 06/17/2024 XR, foot No observ ation record ed. [email or web address] [place] [address] [address] [facility] [address], [place], [address], 06/17/2024 22:59:13 Result Notes None recorded. Problems Name Problem SNOMED Code Status Onset Date Resolution Date Notes Provider Name and Address Organization Details Recorded Time Paroxysmal atrial fibrillati on 427457566 Active 2018 Not Available [facility] 4 02:24:47 Chronic constipati on 390310081 Active 2018 Not Available [facility] 4 02:24:47 Essential hypertensi on 16943323 Active 2018 Not Available [facility] 4 02:24:47 Stricture of esophagus 85616474 Active 2019 S/P dilation 06/06/2020 Not Available [facility] 4 02:24:47 Gastritis 4837890 Active 2019 Not Available [facility] 4 02:24:47 Obstructiv e sleep apnea syndrome 09631881 Active 2019 Not Available [facility] 4 02:24:47 Body mass index 30+ - obesity 136894779 Active 2020 Not Available [facility] 4 02:24:47 Flank pain 099798259 Active 2022 Not Available [facility] 4 02:24:47 Diabetes mellitus 95953723 Active Not Available [facility] 4 02:24:47 Gastroesop hageal reflux disease 218152708 Active Not Available [facility] 4 02:24:47 Dermatitis Active Not Available [facility] 4 02:24:47 Allergic rhinitis 57672136 Active Not Available [facility] 4 02:24:47 Obesity 577992505 Active Not Available [facility] 4 02:24:47 Knee pain Active Not Available [facility] 4 02:24:47 Chest pain 72842294 Active Not Available [facility] 4 02:24:47 Notes:Some problems listed i n Documents: #[id number], #[id number], #[id number], #[id number], #[id number], #[id number] could not be added to this patient's chart. Please review these documents and add these problems to the patient's chart manually as needed. Problem Notes None recorded. Procedures Surgical History Date Name Laterality Status Provider Name and Address Organization Details Recorded Time 06/12/20 Flexible Laryngoscopy completed Dieudonne Ceballos MD [address], [place], [address], [place] - [facility] 06/12/2020 17:17:03 Imaging Results Imaging Date Name Status LastModified by Organiz ation Details LastModified Time 06/17/2024 [email or web address] [address], [place], [address], 06/17/2024 22:59:13 Procedure Notes None recorded. Medical Equipment None Reported. Allergies No known drug allergies Medications Name Sig Start Date Stop Date Status Note LastModified by Organization Details LastModified Time losartan 50 mg tablet TAKE 1 TABLET BY MOUTH EVERY DAY 09/03 completed Not Available Not Available Not Available cyclobenz aprine 10 mg tablet Take 1 tablet twice a day by oral route as directed for 90 days. 05/22 completed Not Available Not Available Not Available amoxicill in 500 mg capsule 06/12 completed Not Available Not Available Not Available atorvasta tin 80 mg tablet Take 1 tablet every day by oral route for 90 days. 2024 active Not Available Not Available Not Avai lable venlafaxi ne ER 37.5 mg capsule,e xtended release 24 hr TAKE ONE CAPSULE BY MOUTH DAILY AT 9 AM active Not Available Not Available No t Available carvedilo l 6.25 mg tablet 05/06 completed Not Available Not Available Not Available atorvasta tin 20 mg tablet TAKE 1 TABLET BY MOUTH DAILY 08/02 completed Not Available Not Available Not Available trazodone 50 mg tablet TAKE 1 TABLET BY MOUTH EVERY DAY AT BEDTIME 11/28 completed Not Available Not Available Not Available diltiazem ER (XR/XT) 240 mg capsule,e xtended release 24 hr, controlle d Take 1 capsule every day by oral route. 05/06 completed Not Available Not Available Not Available triamcino lone acetonide 0.5 % topical cream APPLY A THIN LAYER TO THE AFFECTED AREA(S) BY TOPICAL ROUTE 1 TIME PER DAY for 1 week on face 01/25 completed Not Available Not Available Not Available cetirizin e 10 mg tablet TAKE 1 TABLET BY MOUTH ONCE DAILY active Not Available Not Available No t Available pravastat in 40 mg tablet TAKE 1 TABLET BY MOUTH EVERY DAY 12/18 completed Not Available Not Available Not Available ibuprofen 800 mg tablet TAKE 1 TABLET BY MOUTH THREE TIMES DAILY NEEDED 05/22 completed Not Available Not Available Not Available benzonata te 200 mg capsule TAKE 1 CAPSULE BY MOUTH THREE TIMES DAILY NEEDED 12/16 completed Not Available Not Available Not Available metoprolo l succinate ER 50 mg tablet,ex tended release 24 hr TAKE ONE TABLET (50MG) BY MOUTH DAILY AT 9 AM active Not Available Not Available No t Available ranitidin e 300 mg tablet Take 1 tablet twice a day by oral route for 90 days. 01/25 completed Not Available Not Available Not Available hydrocodo ne 5 mg-acetam inophen 325 mg tablet 01/25 completed Not Available Not Available Not Available Adipex-P 37.5 mg tablet Take 1 tablet every day by oral route as directed for 30 days. 01/25 completed Not Available Not Available Not Available sucralfat e 1 gram tablet TAKE 1 TABLET BY MOUTH FOUR TIMES DAILY BEFORE MEALS active Not Available Not Available No t Available famotidin e 40 mg tablet Take 1 tablet every day by oral route at bedtime. 2024 active Not Available Not Available Not Avai lable Lantus U-100 Insulin 100 unit/mL subcutane ous solution INJECT 50 UNITS UNDER THE SKIN NIGHTLY 12/18 completed Not Available Not Available Not Available hydralazi ne 25 mg tablet TAKE 1 TABLET BY MOUTH TWICE DAILY 10/31 completed Not Available Not Available Not Available amlodipin e 5 mg tablet TAKE 1 TABLET BY MOUTH EVERY DAY 01/13 completed Not Available Not Available Not Available peg-elect rolyte solution 420 gram oral solution FOLLOW OFFICE DIRECTIO NS active Not Available Not Available No t Available aspirin 81 mg tablet,de layed release Take 1 tablet every day by oral route. 10/31 completed Not Available Not Available Not Available tramadol 50 mg tablet 01/25 completed Not Available Not Available Not Available acetamino phen 500 mg tablet 12/18 completed Not Available Not Available Not Available glimepiri de 2 mg tablet TAKE ONE TABLET BY MOUTH DAILY AT 9 AM FOR 30 DAYS. APPT SCHEDULE D 05/12/20 25 active Not Available Not Available No t Available baclofen 20 mg tablet TAKE 1 TABLET BY MOUTH TWICE DAILY FOR 15 DAYS NEEDED 11/28 completed Not Available Not Available Not Available pantopraz ole 20 mg tablet,de layed release Take 2 tablets every day by oral route. active Not Available Not Available No t Available ketorolac 0.5 % eye drops active Not Available Not Available Not Available meloxicam 7.5 mg tablet 01/25 completed Not Available Not Available Not Available amoxicill in 875 mg tablet Take 1 tablet every 12 hours by oral route for 10 days. 01/25 completed Not Available Not Available Not Available alprazola m 0.25 mg tablet TAKE 1 TABLET BY MOUTH THREE TIMES DAILY NEEDED FOR ANXIETY 11/28 completed Not Available Not Available Not Available famotidin e 20 mg tablet Take 1 tablet twice a day by oral route for 90 days. 01/25 completed Not Available Not Available Not Available prednisol one acetate 1 % eye drops,chaparro pension active Not Available Not Available Not Available magnesium oxide 400 mg (241.3 mg magnesium ) tablet 01/25 completed Not Available Not Available Not Available gentamici n 0.3 % eye drops 01/25 completed Not Available Not Available Not Available dicyclomi ne 20 mg tablet 01/25 completed Not Available Not Available Not Available ciproflox acin 0.3 % eye drops active Not Available Not Available Not Available baclofen 10 mg tablet TAKE 1 TABLET BY MOUTH TWICE DAILY 01/25 completed Not Available Not Available Not Available amlodipin e 10 mg tablet TAKE ONE TABLET (10MG) BY MOUTH DAILY AT 9 AM 08/02 completed Not Available Not Available Not Available pantopraz ole 40 mg tablet,de layed release TAKE 1 TABLET BY MOUTH EVERY DAY DIRECTED 10/31 completed Not Available Not Available Not Available oseltamiv ir 75 mg capsule TAKE 1 CAPSULE BY MOUTH TWICE DAILY active Not Available Not Available No t Available metformin 1,000 mg tablet TAKE ONE TABLET BY MOUTH TWICE DAILY @ 9AM - 5PM WITH MEALS APPT SCHEDULE D 02/01/20 25 active Not Available Not Available No t Available neomycin- polymyxin -dexameth 3.5 mg/mL-10, 000 unit/mL-0 .1% eye drops 01/25 completed Not Available Not Available Not Available diphenhyd ramine 25 mg tablet Take 1 tablet every day by oral route at bedtime for 90 days. 01/25 completed Not Available Not Available Not Available glimepiri de 4 mg tablet TAKE 1 TABLET BY MOUTH TWICE DAILYa ppointme nt due 05/16 completed appoin tment due Not Available Not Available Not Available promethaz ine 25 mg tablet TAKE 1/2 TABLET BY MOUTH EVERY 6 HOURS NEEDED active Not Available Not Available No t Available losartan 25 mg tablet Take 1 tablet by oral route for 90 days. 01/25 completed Not Available Not Available Not Available metoprolo l tartrate 50 mg tablet 05/06 completed Not Available Not Available Not Available nitroglyc lisa 0.4 mg sublingua l tablet active Not Available Not Available Not Available docusate sodium 100 mg capsule Take 1 capsule every day by oral route for 90 days. 2023 active Not Available Not Available Not Avai lable omeprazol e 20 mg capsule,d elayed release Take 1 capsule every day by oral route for 90 days. 01/25 completed Not Available Not Available Not Available Banophen 25 mg capsule 01/25 completed Not Available Not Available Not Available monteluka st 10 mg tablet Take 1 tablet every day by oral route as directed for 90 days. 01/25 completed Not Available Not Available Not Available hydroxyzi ne HCl 25 mg tablet TAKE ONE TABLET BY MOUTH DAILY AT 9 PM AT BEDTIME active Not Available Not Available No t Available metoprolo l succinate ER 25 mg tablet,ex tended release 24 hr TAKE 1 TABLET BY MOUTH EVERY DAY 10/31 completed Not Available Not Available Not Available ergocalci ferol (vitamin D2) 1,250 mcg (50,000 unit) capsule TAKE 1 CAPSULE BY MOUTH EVERY WEEK 04/05 completed Not Available Not Available Not Available clobetaso l 0.05 % topical ointment active Not Available Not Available Not Available polyethyl mello glycol 3350 17 gram/dose oral powder DISSOLVE 1 CAPFUL IN 8OZ OF LIQUID AND DRINK EVERY DAY NEEDED 10/31 completed Not Available Not Available Not Available methylpre dnisolone 4 mg tablets in a dose pack FOLLOW PACKAGE DIRECTIO NS 05/06 completed Not Available Not Available Not Available albuterol sulfate HFA 90 mcg/actua tion aerosol inhaler INHALE 2 PUFFS BY MOUTH EVERY 4 TO 6 HOURS NEEDED active Not Available Not Available No t Available diltiazem 30 mg tablet TAKE 1 TABLET BY MOUTH TWICE DAILY 11/28 completed Not Available Not Available Not Available Zoloft 100 mg tablet Take 1 tablet every day by oral route. 01/25 completed Not Available Not Available Not Available ondansetr on 4 mg disintegr ating tablet 01/25 completed Not Available Not Available Not Available losartan 100 mg tablet TAKE ONE TABLET BY MOUTH DAILY AT 9 AM active Not Available Not Available No t Available fluticaso ne propionat e 50 mcg/actua tion nasal spray,chaparro pension USE 2 SPRAY(S) IN EACH NOSTRIL ONCE DAILY active Not Available Not Available No t Available metformin ER 500 mg tablet,ex tended release 24 hr TAKE 2 TABLETS BY MOUTH EVERY DAY 01/25 completed Not Available Not Available Not Available sertralin e 50 mg tablet TAKE 1 TABLET BY MOUTH EVERY DAY 11/02 completed Not Available Not Available Not Available insulin syringe U-100 with needle 0.5 mL 31 gauge x 5/16 02/21 completed Not Available Not Available Not Available loratadin e 10 mg tablet Take 1 tablet every day by oral route for 90 days. 11/02 completed Not Available Not Available Not Available amoxicill in 875 mg-potass ium clavulana te 125 mg tablet TAKE 1 TABLET BY MOUTH TWICE DAILY active Not Available Not Available No t Available insulin syringe U-100 with needle 1/2 mL 30 gauge 02/21 completed Not Available Not Available Not Available escitalop alen 10 mg tablet TAKE 1 TABLET BY MOUTH EVERY DAY 09/12 completed Not Available Not Available Not Available bupropion HCl XL 150 mg 24 hr tablet, extended release TAKE 1 TABLET BY MOUTH EVERY DAY 11/28 completed Not Available Not Available Not Available metoprolo l tartrate 25 mg tablet TAKE 1 TABLET BY MOUTH TWICE DAILY. HOLD IF HEART RATE IS LESS THAN 60. 08/02 completed Not Available Not Available Not Available nitrofura ntoin monohydra te/macroc rystals 100 mg capsule Take 1 capsule every 12 hours by oral route. 02/14 completed Not Available Not Available Not Available eszopiclo ne 2 mg tablet TAKE 1 TABLET BY MOUTH ONCE THE NIGHT OF SLEEP STUDY active Not Available Not Available No t Available Januvia 100 mg tablet Take 1 tablet every day by oral route for 90 days. 08/12 completed Not covered by pt insuranc e Not Available Not Available Not Available Lantus Solostar U-100 Insulin 100 unit/mL (3 mL) subcutane ous pen ADMINIST ER 10 UNITS UNDER THE SKIN EVERY DAY 05/06 completed Not Available Not Available Not Available Trueresul t Blood Glucose System kit 10/31 completed Not Available Not Available Not Available venlafaxi ne ER 37.5 mg tablet,ex tended release 24 hr TAKE 1 TABLET BY MOUTH EVERY DAY 12/22 completed Not Available Not Available Not Available Gavilyte- C 240 gram-22.7 2 gram-6.72 gram-5.84 gram oral solution Beginnin g at 5:00 PM the night before the colonosc opy, drink 8 ounces every 15 minutes until gone. 07/04 completed Not Available Not Available Not Available GaviLyte- G 236 gram-22.7 4 gram-6.74 gram-5.86 gram oral solution MIX AND DRINK DIRECTED active Not Available Not Available No t Available Prodigy Twist Top Lancet 28 gauge 10/31 completed Not Available Not Available Not Available Xarelto 20 mg tablet Take 1 tablet every day by oral route. 04/05 completed Not Available Not Available Not Available OneTouch Verio test strips USE TO TEST BLOOD SUGARS TWICE DAILY. 04/15 completed Not Available Not Available Not Available Banophen 50 mg capsule TAKE ONE CAPSULE BY MOUTH EVERY DAY 05/22 completed Not Available Not Available Not Available Eliquis 5 mg tablet TAKE ONE TABLET (5 MG TOTAL) BY MOUTH TWICE DAILY @ 9AM & 5PM active Not Available Not Available No t Available aloglipti n 25 mg tablet Take 1 tablet every day by oral route for 30 days. 01/25 completed Not Available Not Available Not Available Victoza 3-Ej 0.6 mg/0.1 mL (18 mg/3 mL) subcutane ous pen injector inject 0.6 mg daily for 1 wk then 1.2 mg daily for 1 week then 1.8 mg daily 11/28 completed Not Available Not Available Not Available Levemir FlexTouch U-100 Insulin 100 unit/mL (3 mL) subcutane ous pen Inject 35 units every day by subcutan eous route for 90 days. 01/25 completed Lantus Pen not covered by Patients insuranc e. Not Available Not Available Not Available Corlanor 7.5 mg tablet TAKE 2 TABLETS BY MOUTH 2 HOURS PRIOR TO PROCEDUR E ON 05/06 completed Not Available Not Available Not Available TechLITE Pen Needle 31 gauge x 16 10/31 completed Not Available Not Available Not Available Trintelli x 10 mg tablet TAKE ONE TABLET BY MOUTH DAILY AT 9 AM FOR DEPRESSI ON OR ANXIETY active Not Available Not Available No t Available Trulance 3 mg tablet TAKE 1 TABLET BY MOUTH EVERY DAY 10/31 completed Not Available Not Available Not Available TechLITE Pen Needle 31 gauge x 12/05 FOLLOW PACKAGE DIRECTIO NS. 10/31 completed Not Available Not Available Not Available Ozempic 1 mg/dose (2 mg/1.5 mL) subcutane ous pen injector 09/03 completed Not Available Not Available Not Available Ozempic 0.25 mg or 0.5 mg (2 mg/1.5 mL) subcutane ous pen injector INJECT 0.5 MG UNDER THE SKIN ONCE A WEEK 01/13 completed Not Available Not Available Not Available OneTouch Verio Reflect Meter USE DIRECTED 04/15 completed Not Available Not Available Not Available Ozempic 1 mg/dose (4 mg/3 mL) subcutane ous pen injector INJECT 1MG UNDER THE SKIN ONCE A WEEK 03/11 completed Not Available Not Available Not Available Paxlovid 300 mg (150 mg x 2)-100 mg tablets in a dose pack take PO as directed on package 06/10 completed Not Available Not Available Not Available Ozempic 2 mg/dose (8 mg/3 mL) subcutane ous pen injector Inject 2 mg every week by subcutan eous route, for diabetes . active Not Available Not Available No t Available Ozempic 0.25 mg or 0.5 mg (2 mg/3 mL) subcutane ous pen injector Inject 0.5 mg every week by subcutan eous route. 05/06 completed appt 01/30/23 Not Available Not Available Not Available Vitals Date Recorded Body height Body mass index (BMI) Body weight Body temperature Heart rate Oxygen saturation Oxygen saturation in Arterial blood by Pulse oximetry Systolic blood pressure Diastolic blood pressure Provider Name and Address Organization Details Last Updated DateTime 172.72 cm 39.5 kg/m2 100492. 02 g 97.8 [degF] 71 /min 98 % 98 % 149 mm[Hg] 83 mm[Hg] Anais Kuhn [facility] 16:52:45 Date Recorded Systolic blood pressure Diastolic blood pressure Provider Name and Address Organization Details Last Updated DateTime 01/26/2024 138 mm[Hg] 72 mm[Hg] MARGARET Dyer Attn: Accounting[address] [place], [address], [facility] 01/26/2024 17:08:38 Date Recorded Body height Body mass index (BMI) Body weight Body temperature Heart rate Oxygen saturation Oxygen saturation in Arterial blood by Pulse oximetry Systolic blood pressure Diastolic blood pressure Provider Name and Address Organization Details Last Updated DateTime 4 172.72 cm 38.9 kg/m2 937049. 65 g 97.7 [degF] 80 /min 98 % 98 % 160 mm[Hg] 88 mm[Hg] Carissa Blood MA [facility] 17:21:20 Date Recorded Systolic blood pressure Diastolic blood pressure Provider Name and Address Organization Details Last Updated DateTime 06/30/2024 156 mm[Hg] 82 mm[Hg] MARGARET Dyer Attn: Accounting[address] [place], [address], [facility] 06/30/2024 17:51:54 Date Recorded Body height Body mass index (BMI) Body weight Body temperature Heart rate Oxygen saturation Oxygen saturation in Arterial blood by Pulse oximetry Systolic blood pressure Diastolic blood pressure Provider Name and Address Organization Details Last Updated DateTime 4 172.72 cm 38.9 kg/m2 518681. 65 g 98 [degF] 82 /min 99 % 99 % 169 mm[Hg] 84 mm[Hg] Carissa Blood MA [facility] 4 16:38:02 Date Recorded Systolic blood pressure Diastolic blood pressure Provider Name and Address Organization Details Last Updated DateTime 08/02/2024 140 mm[Hg] 86 mm[Hg] MARGARET Dyer Attn: Accounting,[address] [place], [address], [facility] 08/02/2024 16:56:50 Date Recorded Body height Body mass index (BMI) Body weight Body temperature Heart rate Systolic blood pressure Diastolic blood pressure Provider Name and Address Organization Details Last Updated DateTime 5 172.72 cm 39.7 kg/m2 555057. 61 g 98.2 [degF] 80 /min 169 mm[Hg] 88 mm[Hg] Lea Fuentes MA [facility] 5 17:19:25 Date Recorded Systolic blood pressure Diastolic blood pressure Provider Name and Address Organization Details Last Updated DateTime 10/26/2024 126 mm[Hg] 84 mm[Hg] MARGARET Dyer Attn: Accounting[address] [place], [address], [facility] 10/26/2024 17:58:27 Date Recorded Body height Body mass index (BMI) Body weight Heart rate Body temperature Systolic blood pressure Diastolic blood pressure Provider Name and Address Organization Details Last Updated DateTime 5 172.72 cm 39.2 kg/m2 173572. 83 g 80 /min 98.4 [degF] 154 mm[Hg] 86 mm[Hg] Mariela Waller MA [facility] 5 14:51:59 Social History Question Answer Notes LastModified by Organizat ion Details LastModified Time Tobacco Smoking Status Former Smoker Quit smoking in 1997 DOC Ramírez, [facility] 05/22/2020 09:59:48 Do You Have An Advance Directive? No Information not available 01/02/2022 What Is Your Level Of Alcohol Consumption? None Information not available 01/17/2015 What Is Your Level Of Caffeine Consumption? Occasional Information not available 01/17/2015 How Much Tobacco Do You Chew? None Information not available 05/22/2020 What Type Of Diet Are You Following? REGULAR Information not available 01/17/2015 Which Illicit Or Recreational Drugs Have You Used? None Information not available 05/22/2020 Do You Or Have You Ever Used E-cigarettes Or Vape? Never Used Electronic Cigarettes Information not available 11/02/2019 When Did You Quit Smoking? 16+yearssincel [email or web address] Information not available 11/01/2020 Marital Status Informatio n not available 01/17/2015 Do You Have A Medical Power Of Neuropathologist? No Information not available 01/02/2022 What Was The Date Of Your Most Recent Tobacco Screening? 10/26/2024 [email or web address] Information not available 10/26/2024 Difficulty Reading? No Information not available 04/30/2017 Do You Or Have You Ever Used Smokeless Tobacco? Never Used Smokeless Tobacco Information not available 11/02/2019 How Much Tobacco Do You Smoke? No [email or web address] Information not available 10/20/2017 General Stress Level High Information not available 01/17/2015 Difficulty Watching TV? Yes Information not available 04/30/2017 Do You Or Have You Ever Used Any Other Forms Of Tobacco Or Nicotine? No [email or web address] Information not available 01/30/2023 Sex: Unknown Functional Status Question Answer Note LastModified by Organizat ion Details LastModified Time Difficulty driving at night? Yes Information no t available 04/30/2017 What is your exercise level? Occasional Information not available 01/17/2015 Mental Status None recorded. Family History Relationship Description Onset Age of this Age Resolved Age Notes LastModified by Organization Details LastModified Time Mother Diabetes mellitus [email or web address] Not available 2019 09:59:08 Mother Hypertensive disorder [email or web address] Not available 2019 09:59:16 Mother Gout [email or web address] Not available 05/22/2020 09:59:27 Sister Malignant tumor of breast [email or web address] Not available 2019 10:22:08 Medical History Condition Response Coronary Artery Disease N Gout N Other N Atrial Fibrillation N High Blood Pressure Y Colon Cancer N Kidney Stones N Hyperthyroidism N Hypothyroidism N Blood Clots N COPD N Depression N Diverticulitis/Diverticulosis N Anxiety Disorder N Muscle, Joint, or Bone Problems N Arthritis Y Acid Reflux (GERD) N Cancer N Stroke N High Cholesterol N Liver Disease N Headaches N Kidney Disease N Thyroid Problems N Kidney or Bladder Problems N GI Problems N Skin Problems N Anemia N Colon Polyps Y Heart Attack ([place]) N Diabetes Y Bleeding Disorder N Seizures/Epilepsy N Tuberculosis N Hyperlipidemia Y Asthma N Allergies N Sleep Apnea N GERD/Reflux Y Hepatitis N Cirrhosis N Heart Disease N Hypertension Y Heart Failure N Osteoporosis N Gynecological HistoryNo gynecological history recorded. Obstetrics History GPAL:G 0 P 0 0 0 0 Immunizations Vaccine Type Date Status Note Provider Nam e and Address Organization Details Recorded Time COVID-19, mRNA, LNP-S, PF, 100 mcg/0.5mL dose or 50 mcg/0.25mL dose 01/05/2021 completed MARGARET Dyer Attn: Accounting[address] [place], [address], [place] [facility] 06/30/2024 17:53:35 COVID-19, mRNA, LNP-S, PF, 100 mcg/0.5mL dose or 50 mcg/0.25mL dose 12/08/2020 completed MARGARET Dyer Attn: Accounting[address] [place], [address], [place] - [facility] 06/30/2024 17:53:35 Past Encounters Encounter ID Performer Location Encounter Start Date Encounter Closed Date Diagnosis/Indication Diagnosis SNOMED-CT Code Diagnosis ICD10 Code Diagnosis Note [id number] Ty Guido MD [address] [address] 01/17/2015 11:07:18 01/18/2015 09:50:14 Diabetes mellitus 94232247 meds and follow up... advised to restart shot... Gastroesop hageal reflux disease 217724944 meds and follow up Dermatitis 133259518 cre am and follow up Allergic rhinitis 54606434 meds and follow up Obesity 235535809 diet a nd exercise [id number] Ty Guido MD [address] [address] 02/22/2015 16:13:35 03/03/2015 16:30:01 Diabetes mellitus 62720114 meds and follow up... advised to restart shot... Allergic rhinitis 59636189 meds and follow up Obesity 393504044 diet a nd exercise.. . is now 266 from 257 in weight... [id number] Ty Guido MD [address] [address] 06/28/2015 10:25:57 06/28/2015 12:18:15 Diabetes mellitus 68827704 E11.9 meds and follow up... advised to restart shot...yeager s not take the shot regularly. .. Allergic rhinitis 312839 04 J30.9 meds and follow up Obesity 695407226 E66.9 diet and exercise.. . is now 264 from 257 in weight... Knee pain 49749590 M25.5 61 x-ray and follow up... [id number] Ty Guido MD [address] [address] 10/12/2015 10:59:05 10/23/2015 19:27:15 Diabetes mellitus 60656227 E11.9 meds and follow up... Gastroesop hageal reflux disease 126580094 K21.9 meds and follow up Dermatitis 648807502 L30 .9 cream and follow up Allergic rhinitis 806661 04 J30.9 meds and follow up Knee pain 12751925 M25.5 61 x-ray and follow up... Chest pain 47962222 R07. 9 refer and follow up... [id number] Ty Guido MD [address] [address] 12/28/2015 12:22:16 01/16/2016 18:00:11 Diabetes mellitus 85582701 E11.9 meds and follow up... Gastroesop hageal reflux disease 843841535 K21.9 meds and follow up Obesity 518615680 E66.9 diet and exercise.. . is now 261 from 264.... 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 follow up... [id number] Ty Guido MD [place] [address] 02/27/2016 12:24:28 03/09/2016 14:23:53 Diabetes mellitus 25466204 E11.9 meds and follow up... Gastroesop hageal reflux disease 527629961 K21.9 meds and follow up Allergic rhinitis 639911 04 J30.9 meds and follow up Obesity 299283242 E66.9 diet and exercise.. . is now 261 from 264.... Dermatitis 051038759 L30 .9 cream and follow up Chest pain 38478672 R07. 9 refer and follow up... [id number] Ty Guido MD [place] [address] 04/29/2016 12:51:31 05/08/2016 03:47:59 Diabetes mellitus 54466998 E11.9 217... adjust meds and follow up.. 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 follow up... Obesity 976553457 E66.9 diet and exercise.. . is now 261 from 264.... Allergic rhinitis 138073 04 J30.9 meds and follow up [id number] Ty Guido MD [place] [address] 3 07/30/2016 11:09:59 08/06/2016 10:12:50 Diabetes mellitus 07903824 E11.9 117... continue meds and follow up.. Gastroesop hageal reflux disease 143148632 K21.9 meds and follow up Allergic rhinitis 742856 04 J30.9 meds and follow up Obesity 731299572 E66.9 diet and exercise.. . is now 267 ... gained 6 pounds.... Essential hypertension 08843947 I10 meds and follow up... Acute dermatitis 0441419 6 L30.9 meds and follow up.. Dermatitis 123655376 L30 .9 cream and follow up Carpal daysi tong syndrome 06974795 G56.01 refer [id number] Ty Guido MD [address] [address] 03/17/2017 15:31:44 03/19/2017 08:36:59 Diabetes mellitus 11037743 E11.9 166... continue meds and follow up.. Obesity 418411878 E66.9 diet and exercise.. . is now 267 ... gained 6 pounds.... Gastroesop hageal reflux disease 890752667 K21.9 meds and follow up Allergic rhinitis 089597 04 J30.9 meds and follow up Essential hypertension 71746513 I10 meds and follow up... check pressures when not here [id number] [facility] [address] [place] [address] 04/30/2017 09:40:26 05/15/2017 09:32:51 Macular edema due to diabetes mellitus 567017324 E11.3313 [id number] Ty Guido MD [address] [address] 05/19/2017 11:27:03 05/19/2017 14:03:59 Diabetes mellitus 33530225 E11.9 166... continue meds and follow up.. Allergic rhinitis 302066 04 J30.9 meds and follow up Obesity 906770242 E66.9 diet and exercise.. . is now 267 ... gained 6 pounds.... Gastroesop hageal reflux disease 309995307 K21.9 meds and follow up... replace omeprazole Abdominal pain 07583707 R10.9 CT and follow up... concern Essential hypertension 71586962 I10 meds and follow up... check pressures when not here... never did get cuff, so start losartan low dose and check at free machines.. . 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 follow up... [id number] [facility] [address] [place] [address] 06/17/2017 15:48:37 06/18/2017 09:06:05 Nonproliferative retinopathy due to diabetes mellitus 341401429 E11.3213 [id number] Delmar Cantu MD [facility] [address] [place] [address] 08/01/2017 11:35:29 08/04/2017 12:41:33 Macular edema due to diabetes mellitus 014139833 E11.3213 [id number] Ty Guido MD [address] [address] 08/20/2017 10:55:21 08/21/2017 14:25:08 Diabetes mellitus 41612435 E13.9 meds and follow up...... Essential hypertension 46663446 I10 meds and follow up... check pressures when not here... never did get cuff, so start losartan low dose and check on free machines.. . Allergic rhinitis 188146 04 J30.9 meds and follow up Gastroesop hageal reflux disease 762016731 K21.9 meds and follow up... replace omeprazole Hyperlipidemia 96896243 E78.5 meds and follow up... Neuropathy 640873740 G62 .9 refer for podiatry [id number] Ty Guido MD [address] [address] 10/20/2017 10:30:28 10/21/2017 08:42:17 Diabetes mellitus 20217004 E13.9 meds and follow up...... Dermatitis 272437838 L30 .9 cream and follow up Gastroesop hageal reflux disease 439899070 K21.9 meds and follow up... replace omeprazole Obesity 611701836 E66.9 diet and exercise.. . is now 236 ... gained 6 pounds.... Allergic rhinitis 207084 04 J30.9 meds and follow up Essential hypertension 49366248 I10 meds and follow up... check pressures when not here... never did get cuff, so start losartan low dose and check on free machines.. . Hyperlipidemia 83356824 E78.5 meds and follow up... Constipation 03215989 K5 9.00 meds and increase water... Neuropathy 241770102 G62 .9 refer for podiatry Anxiety 14117697 F41.9 refer [id number] Ty Guido MD [place] [address] 12/16/2017 17:27:59 12/18/2017 09:53:05 Anxiety 83138777 F41.9 referred.. . [id number] Ty Guido MD [place] [address] 3 05/07/2018 15:46:41 05/08/2018 09:27:55 Diabetes mellitus 09418016 E13.9 meds and follow up......co nsider adjusting meds ... lifestyle changes suggested. .. Dermatitis 915945670 L30 .9 cream and follow up Gastroesop hageal reflux disease 108846231 K21.9 meds and follow up... replace omeprazole Obesity 780849415 E66.9 diet and exercise.. . is now 236 ... gained 6 pounds.... Allergic rhinitis 359393 04 J30.9 meds and follow up Essential hypertension 33138713 I10 meds and follow up... check pressures when not here... never did get cuff, so start losartan low dose and check on free machines.. . Hyperlipidemia 35585336 E78.5 meds and follow up... Constipation 49263804 K5 9.00 meds and increase water... Neuropathy 232548890 G62 .9 refer for podiatry.. . has right low back sciatica.. . Anxiety 46996031 F41.9 referred but didnt go... praying and doing better... [id number] Ty Guido MD [address] [address] 08/11/2018 09:56:09 08/11/2018 16:54:48 Diabetes mellitus 72879639 E13.9 meds and follow up......co nsider adjusting meds ... lifestyle changes suggested. ..add Januvia... Dermatitis 200372962 L30 .9 cream and follow up Gastroesop hageal reflux disease 318981976 K21.9 meds and follow up... replace omeprazole Obesity 147195343 E66.9 diet and exercise.. . is now 256 ... gained 6 pounds.... Allergic rhinitis 630636 04 J30.9 meds and follow up Essential hypertension 68153424 I10 meds and follow up... check pressures when not here... never did get cuff, so start losartan low dose and check on free machines.. . Hyperlipidemia 34531697 E78.5 meds and follow up... Constipation 58745703 K5 9.00 meds and increase water... Neuropathy 728519419 G62 .9 refer for podiatry.. . has right low back sciatica.. . Anxiety 81209560 F41.9 referred but didnt go... praying and doing better... [id number] SG DyerC Kelechi [place] ([facility] 104) [address] [place] [address] 01/25/2019 10:36:26 02/17/2019 08:20:07 Diabetes mellitus 70992541 E11.42 A1C: 9.8 Goal A1C: less than 7 Current Therapy: Metformin ER 500 mg 2 tabs daily, glimepride 4 mg BID, basalglar 50 units every evening- Stop ER version and increase dose to 1000 mg daily. Statin: pravastati n 40 mg REILLY/ARB: Losartan 50 mg Foot Exam: Microalbum in: Pneumovax 23: Pt was counseled on low carbohydra te diet to better manage diabetes. We discussed pt's diet at length and I made specific dietary recommenda tions. I also encouraged regular exercise of 30-60 minutes most days of the week. Pt was encouraged to get yearly diabetic eye exams as well, provided number for [facility] Gastroesop hageal reflux disease 268762047 K21.9 -GERD worsening on PPI-refer to GI Chronic constipation 236 889525 K59.09 -discussed diet, encourged more fiber and water intake-ref erral placed to GI Essential hypertension 60938776 I10 BP Goal: {{Less than 140/90* Le ss than 150/90}} BP Controlled : {{yes no*} } Healthy Weight: {{4'10= 91-118 lbs 4'11= 94-123 lbs 5'= 97-127 lbs 5'1= 100-131 lbs 5'2= 104-135 5' 3= 107-140 lbs 5'4= 110-144 lbs 5'5= 115-149 lbs 5'6= 118-154 lbs 5'7= 121-158 lbs 5'8= 125-163 lbs* 5'9= 128-168 lbs 5'10= 132-173 lbs 5'11= 136-178 lbs 6'= 140-183 lbs 6'1= 144-188 lbs 6'2= 148-193 lbs 6'3= 152-199 lbs 6'4= 156-204 lbs}} Currently followed by cardiology . Discussed: Low sodium balanced diet, moderate exercise at least 3-4 times per week for an average of 40 minutes, limiting alcohol to 1 drink per day (F) or 2 drinks per day (M), and smoking cessation if currently smoking. Next Visit: {{1 2 3* 4 5 6 7 8 9 10 11 12} }{{week(s) month(s)* }} [id number] MARGARET Dyer FP ([facility] 104) [address] [facility] [place] [address] 05/11/2019 11:13:53 05/20/2019 15:30:21 Diabetes mellitus 88577609 E11.42 A1C: 10.1 Goal A1C: less than 7 Current Therapy: glimepride 4 mg BID, basalglar 50 units every evening- Stop ER version and increase dose to 1000 mg twice daily. would like to add meal time insulin but she is hesitant to start. wants to wait another 3 mos Statin: pravastati n 40 mg REILLY/ARB: Losartan 50 mg Foot Exam: 05/11/19, normal Microalbum in: 01/25/19 Pneumovax 23: declined Pt was counseled on low carbohydra te diet to better manage diabetes. We discussed pt's diet at length and I made specific dietary recommenda tions. I also encouraged regular exercise of 30-60 minutes most days of the week. 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 Nonspecifi c tuberculin test reaction 585162947 R76.12 -[facility] CXR one view at [place], negative-l atent Tb, has not been to health dept, so far has declined treatment [id number] Tal Thomas, DO [facility] [address] [place] [address] 08/16/2019 13:48:37 08/24/2019 14:59:32 Erosive gastritis 4204620834 421392 K29.70 Continue Pantoprazo le 40 mg dailyWill consider decreasing dose after 12 weeks of therapy Essential hypertension 29043685 I10 Elevated systolic bp todayTo follow up in primary care Type 2 torie betes mellitus 91696285 E11.9 Not adequately controlled : Last HbA1C was 10.1 in April 2019Discus sed importance of diabetic controlTo follow up in primary care for management [id number] MARGARET Dyer FP ([facility] 104) [address] [facility] [place] [place] [address] 11/02/2019 09:38:48 11/16/2019 08:54:57 Essential hypertension 07508576 I10 BP Goal: {{Less than 140/90* Le ss than 150/90}} BP Controlled : {{yes no*} } Healthy Weight: {{4'10= 91-118 lbs 4'11= 94-123 lbs 5'= 97-127 lbs 5'1= 100-131 lbs 5'2= 104-135 5' 3= 107-140 lbs 5'4= 110-144 lbs 5'5= 115-149 lbs 5'6= 118-154 lbs 5'7= 121-158 lbs 5'8= 125-163 lbs* 5'9= 128-168 lbs 5'10= 132-173 lbs 5'11= 136-178 lbs 6'= 140-183 lbs 6'1= 144-188 lbs 6'2= 148-193 lbs 6'3= 152-199 lbs 6'4= 156-204 lbs}} Currently followed by cardiology , did not take her medication s this morning, discussed med compliance Discussed: Low sodium balanced diet, moderate exercise at least 3-4 times per week for an average of 40 minutes, limiting alcohol to 1 drink per day (F) or 2 drinks per day (M), and smoking cessation if currently smoking. Next Visit: {{1 2 3* 4 5 6 7 8 9 10 11 12} }{{week(s) month(s)* }} Diabetes mellitus 961235 42 A1C: 8.3 Goal A1C: less than 7 Current Therapy: glimepride 4 mg BID, basalglar 50 units every evening- Stop ER version and increase dose to 1000 mg twice daily. Statin: pravastati n 40 mg REILLY/ARB: Losartan 50 mg Foot Exam: 05/11/19, normal Microalbum in: 01/25/19 Pneumovax 23: declined Pt was counseled on low carbohydra te diet to better manage diabetes. We discussed pt's diet at length and I made specific dietary recommenda tions. I also encouraged regular exercise of 30-60 minutes most days of the week. 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 Statin: pravastati n 40 mg REILLY/ARB: Losartan 50 mg Foot Exam: 05/11/19, normal Microalbum in: 01/25/19 Pneumovax 23: declined Pt was counseled on low carbohydra te diet to better manage diabetes. We discussed pt's diet at length and I made specific dietary recommenda tions. I also encouraged regular exercise of 30-60 minutes most days of the week. Pt was encouraged to get yearly diabetic eye exams as well, provided number for [facility] RTC 3 months [id number] MARGARET Dyer (CRUZ 104) [address] [place] [address] 02/22/2020 14:00:04 03/10/2020 11:10:32 Dysuria [id number] R30.9 -UA not impressive , send for culture Diabetes mellitus 509115 09 E11.42 -switch basaglar to morning so she does not miss mizcpT4V: 9.8 Goal A1C: less than 7 Current Therapy: glimepride 4 mg BID, basalglar 50 units every evening- Stop ER version and increase dose to 1000 mg twice daily. Statin: pravastati n 40 mg REILLY/ARB: Losartan 50 mg Foot Exam: 05/11/19, normal Microalbum in: 01/25/19 Pneumovax 23: declined Pt was counseled on low carbohydra te diet to better manage diabetes. We discussed pt's diet at length and I made specific dietary recommenda tions. I also encouraged regular exercise of 30-60 minutes most days of the week. Pt was encouraged to get yearly diabetic eye exams as well, provided number for [facility] RTC 3 months Constipation 31413270 K5 9.00 -discussed diet, increase fiber and water-star t stool softener Gastroesop hageal reflux disease 882694492 K21.9 -start carafate before meals-disc ussed diet [id number] MARGARET Dyer (CRUZ 104) [address] [place] [address] 04/04/2020 09:52:36 04/05/2020 10:41:56 Gastroesophageal reflux disease 059221369 K21.9 -keep close f/u with GI-mailing GERD instructio ns-should try mechanical soft diet to help with digestion. [id number] MARGARET Dyer (CRU[facility] 104) [address] [place] [address] 05/02/2020 16:08:20 05/17/2020 09:54:22 Esophageal dysphagia 81651496 R13.19 -already est with GI, encouraged to f/u with SLIM Colvin-can cont her carafate as needed Insomnia 934094658 G47.0 9 -can try trazodone- does not want any other mood altering medication s at this time-encou raged ER for any SI symptoms. [id number] MARGARET Dyer (CR[facility] 104) [address] [place] [address] 05/17/2020 14:43:22 05/18/2020 07:52:45 Fatigue 53366537 R53.83 check thyroid and vitamin D levelreche ck CBC, WBC was slightly elevated at last ER visit. Edema of pharynx 2885800 J39.2 -refer to ENT Excessive day and night-time sleepiness 683925554 G47.19 -send for sleep study, fatigue may be related to PHIL Essential hypertension 10102100 I10 BP Goal: {{Less than 140/90* Le ss than 150/90}} BP Controlled : {{yes no*} } Healthy Weight: {{4'10= 91-118 lbs 4'11= 94-123 lbs 5'= 97-127 lbs 5'1= 100-131 lbs 5'2= 104-135 5' 3= 107-140 lbs 5'4= 110-144 lbs 5'5= 115-149 lbs 5'6= 118-154 lbs 5'7= 121-158 lbs 5'8= 125-163 lbs* 5'9= 128-168 lbs 5'10= 132-173 lbs 5'11= 136-178 lbs 6'=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
--- OUTSIDE RECORDS SUMMARY | 2025-01-26 09:17 | XMS_ITS | Encounter Summary ---
Author Organization [facility] Care Team Providers Care [employer] Name Role Phone Kalee Modi NP Primary Care Provider [phone] Encounter Details Date Type Department Care Team (Latest Contact Info) Description 07/12/2018 Orders Only [facility] CLINCONV ProviderEdita MD [address] [place] [address] Social History Tobacco Use Types Packs/Day Years Used Date Smoking Tobacco: Never Assessed Comments Unknown Sex and Gender Information Value Date Recorded Sex Assigned at Not on file Legal Sex Female 6:13 AM DIET AID Gender Identity Not on file Sexual Orientation [...] documented as of this encounter Care Teams [employer] Relationship Specialty Start Date End Date Kalee Modi NP PCP - General 05/03/20 documented as of this encounter
--- OUTSIDE RECORDS SUMMARY | 2025-01-26 09:17 | XMS_ITS | Data Portability ---
Author Organization [employer], Main Office Address [address] [place] [address] Care Team Providers Care Materials Mgmt Tech Name Role Phone AMANDA QUINN Primary Care Provider ISMAEL BROWN Parts Identifier Assessment No assessment recorded. Plan of Treatment Reminders Order Date Submit Date Provider Last Modified By Organization Details Last Modified Time Details Appointments None recorded. Lab None recorded. Referral None recorded. Procedures None recorded. Surgeries tonsillecto my (SURG) 2023 024 [email or web address] Not available 4 09:36:42 Imaging None recorded. Medication Orders None recorded. Patient TargetsNo targets recorded. Patient InstructionsNo instructions recorded. Reason for Referral None Reported. Problems Name Problem SNOMED Code Status Onset Date Resolution Date Notes Provider Name and Address Organization Details Recorded Time Chronic tonsilliti s 68518378 Active 2023 Darinel Payan MD [address] [facility], [place] [address], [place], [address] , [facility] 4 16:48:36 Postoperat radha pain 222623572 Active 2023 Darinel Payan MD [address], [place] [address], [place], [address] , [facility] 4 17:03:55 Peripheral neuropathy due to type 2 diabetes mellitus 0873789268602 Active 2018 Not Available [facility] 3 04:53:00 Porokerato sis 659925338 Active 2019 Not Available [facility] 3 04:53:00 Foot pain 40646495 Active 2018 Not Available [facility] 3 04:53:00 Problem Notes None recorded. Medical Equipment None Reported. Allergies No known drug allergies Medications Name Sig Start Date Stop Date Status Note LastModified by Organization Details LastModified Time losartan 50 mg tablet TAKE 1 TABLET BY MOUTH EVERY DAY 04/08 completed Not Available Not Available Not Available cyclobenz aprine 10 mg tablet 04/08 completed Not Available Not Available Not Available amoxicill in 500 mg capsule TAKE ONE CAPSULE BY MOUTH EVERY 8 HOURS UNTIL ALL TAKEN active Not Available Not Available No t Available atorvasta tin 80 mg tablet TAKE ONE TABLET BY MOUTH DAILY AT 5 PM 04/08 completed Not Available Not Available Not Available venlafaxi ne ER 37.5 mg capsule,e xtended release 24 hr TAKE ONE CAPSULE BY MOUTH DAILY AT 9 AM active Not Available Not Available No t Available atorvasta tin 20 mg tablet TAKE 1 TABLET BY MOUTH DAILY active Not Available Not Available No t Available trazodone 50 mg tablet TAKE 1 TABLET BY MOUTH EVERY DAY AT BEDTIME 04/08 completed Not Available Not Available Not Available cetirizin e 10 mg tablet TAKE 1 TABLET BY MOUTH DAILY active Not Available Not Available No t Available pravastat in 40 mg tablet TAKE 1 TABLET BY MOUTH EVERY DAY 04/08 completed Not Available Not Available Not Available ibuprofen 800 mg tablet TK 1 T PO TID PRN 04/08 completed Not Available Not Available Not Available metoprolo l succinate ER 50 mg tablet,ex tended release 24 hr TAKE ONE TABLET (50MG) BY MOUTH DAILY AT 9 AM active Not Available Not Available No t Available sucralfat e 1 gram tablet TK 1 T PO QID B MEALS 04/08 completed Not Available Not Available Not Available famotidin e 40 mg tablet TAKE ONE TABLET (40 MG) BY MOUTH DAILY AT 9 PM AT BEDTIME active Not Available Not Available No t Available Lantus U-100 Insulin 100 unit/mL subcutane ous solution INJECT 50 UNITS UNDER THE SKIN NIGHTLY active Not Available Not Available No t Available hydralazi ne 25 mg tablet TAKE 1 TABLET BY MOUTH TWICE DAILY 04/08 completed Not Available Not Available Not Available amlodipin e 5 mg tablet TAKE 1 TABLET BY MOUTH EVERY DAY 04/08 completed Not Available Not Available Not Available aspirin 81 mg tablet,de layed release TAKE 1 TABLET BY MOUTH EVERY DAY active Not Available Not Available No t Available tramadol 50 mg tablet 04/08 completed Not Available Not Available Not Available acetamino phen 500 mg tablet TK 1 T PO Q 6 H PRN P active Not Available Not Available No t Available glimepiri de 2 mg tablet TAKE ONE TABLET BY MOUTH DAILY AT 9 AM FOR 30 DAYS active Not Available Not Available No t Available baclofen 20 mg tablet TAKE 1 TABLET BY MOUTH TWICE DAILY FOR 15 DAYS NEEDED 04/08 completed Not Available Not Available Not Available meloxicam 7.5 mg tablet 04/08 completed Not Available Not Available Not Available alprazola m 0.25 mg tablet TAKE 1 TABLET BY MOUTH THREE TIMES DAILY NEEDED FOR ANXIETY 04/08 completed Not Available Not Available Not Available DOK 100 mg capsule TK ONE C PO QD 04/08 completed Not Available Not Available Not Available baclofen 10 mg tablet TK 1 T PO BID 02/14 completed Not Available Not Available Not Available amlodipin e 10 mg tablet TAKE ONE TABLET (10MG) BY MOUTH DAILY AT 9 AM active Not Available Not Available No t Available pantopraz ole 40 mg tablet,de layed release TAKE 1 TABLET BY MOUTH EVERY DAY DIRECTED 04/08 completed Not Available Not Available Not Available metformin 1,000 mg tablet TAKE ONE TABLET BY MOUTH TWICE DAILY @ 9AM AND 5PM WITH MEALS active Not Available Not Available No t Available glimepiri de 4 mg tablet TAKE 1 TABLET BY MOUTH TWICE DAILY 04/08 completed Not Available Not Available Not Available nitroglyc lisa 0.4 mg sublingua l tablet DISSOLVE 1 TABLET UNDER THE TONGUE DIRECTED 04/08 completed Not Available Not Available Not Available hydroxyzi ne HCl 25 mg tablet TAKE ONE TABLET BY MOUTH DAILY AT 9 PM AT BEDTIME active Not Available Not Available No t Available metoprolo l succinate ER 25 mg tablet,ex tended release 24 hr TAKE 1 TABLET BY MOUTH EVERY DAY 04/08 completed Not Available Not Available Not Available ergocalci ferol (vitamin D2) 1,250 mcg (50,000 unit) capsule TAKE 1 CAPSULE BY MOUTH EVERY WEEK 04/08 completed Not Available Not Available Not Available clobetaso l 0.05 % topical ointment 04/08 completed Not Available Not Available Not Available polyethyl mello glycol 3350 17 gram/dose oral powder DISSOLVE 1 CAPFUL IN 8OZ OF LIQUID AND DRINK EVERY DAY NEEDED 04/08 completed Not Available Not Available Not Available methylpre dnisolone 4 mg tablets in a dose pack 02/14 completed Not Available Not Available Not Available diltiazem 30 mg tablet TAKE 1 TABLET BY MOUTH TWICE DAILY 04/08 completed Not Available Not Available Not Available losartan 100 mg tablet TAKE ONE TABLET BY MOUTH DAILY AT 9 AM active Not Available Not Available No t Available metformin ER 500 mg tablet,ex tended release 24 hr TK 2 TS PO QD 04/08 completed Not Available Not Available Not Available sertralin e 50 mg tablet TK 1 T PO QD 04/08 completed Not Available Not Available Not Available amoxicill in 875 mg-potass ium clavulana te 125 mg tablet TAKE 1 TABLET BY MOUTH TWICE DAILY WITH FOOD UNTIL ALL GONE 04/08 completed Not Available Not Available Not Available escitalop alen 10 mg tablet TAKE 1 TABLET BY MOUTH EVERY DAY 04/08 completed Not Available Not Available Not Available bupropion HCl XL 150 mg 24 hr tablet, extended release TAKE 1 TABLET BY MOUTH EVERY DAY 04/08 completed Not Available Not Available Not Available metoprolo l tartrate 25 mg tablet TAKE 1 TABLET BY MOUTH TWICE DAILY. HOLD IF HEART RATE IS LESS THAN 60. 04/08 completed Not Available Not Available Not Available hydrocodo ne 7.5 mg-acetam inophen 325 mg/15 mL oral solution Take 15 mL every 4-6 hours by oral route. 2023 active Not Available Not Available Not Avai lable nitrofura ntoin monohydra te/macroc rystals 100 mg capsule TK 1 C PO Q 12 H 04/08 completed Not Available Not Available Not Available Lantus Solostar U-100 Insulin 100 unit/mL (3 mL) subcutane ous pen ADMINIST ER 40 UNITS UNDER THE SKIN AT BEDTIME active Not Available Not Available No t Available venlafaxi ne ER 37.5 mg tablet,ex tended release 24 hr TAKE 1 TABLET BY MOUTH EVERY DAY 04/08 completed Not Available Not Available Not Available Gavilyte- C 240 gram-22.7 2 gram-6.72 gram-5.84 gram oral solution 04/08 completed Not Available Not Available Not Available OneTouch Verio test strips USE TO TEST BLOOD SUGARS TWICE DAILY. active Not Available Not Available No t Available Banophen 50 mg capsule TK ONE C PO QD 04/08 completed Not Available Not Available Not Available Eliquis 5 mg tablet TAKE ONE TABLET BY MOUTH TWICE DAILY @ 9AM & 5PM active Not Available Not Available No t Available aloglipti n 25 mg tablet 04/08 completed Not Available Not Available Not Available Victoza 3-Ej 0.6 mg/0.1 mL (18 mg/3 mL) subcutane ous pen injector 04/08 completed Not Available Not Available Not Available TechLITE Pen Needle 31 gauge x /16 U UTD ONCE D active Not Available Not Available No t Available Trintelli x 10 mg tablet TAKE 1 TABLET BY MOUTH EVERY DAY FOR DEPRESSI ON OR ANXIETY active Not Available Not Available No t Available Trulance 3 mg tablet TAKE 1 TABLET BY MOUTH EVERY DAY 04/08 completed Not Available Not Available Not Available TechLITE Pen Needle 31 gauge x 16 FOLLOW PACKAGE DIRECTIO NS. active Not Available Not Available No t Available Ozempic 0.25 mg or 0.5 mg (2 mg/1.5 mL) subcutane ous pen injector INJECT 0.25 MG UNDER THE SKIN EVERY WEEK FOR 4 WEEKS THEN INCREASE TO 0.5 MG 04/08 completed Not Available Not Available Not Available OneTouch Verio Reflect Meter USE DIRECTED active Not Available Not Available No t Available Ozempic 1 mg/dose (4 mg/3 mL) subcutane ous pen injector INJECT 1MG UNDER THE SKIN ONCE A WEEK 04/08 completed Not Available Not Available Not Available Ozempic 2 mg/dose (8 mg/3 mL) subcutane ous pen injector active Pt reports to take 2 mg per wk. Not Available Not Available Not Available Vitals Date Recorded Body mass index (BMI) Body height Heart rate Body weight Systolic blood pressure Diastolic blood pressure Provider Name and Address Organization Details Last Updated DateTime 1 37.6 kg/m2 172.72 cm 74 /min 918763. 32 g 130 mm[Hg] 90 mm[Hg] Not Available [facility] 3 04:49:24 Date Recorded Body mass index (BMI) Body height Heart rate Body weight Systolic blood pressure Diastolic blood pressure Provider Name and Address Organization Details Last Updated DateTime 37.6 kg/m2 172.72 cm 72 /min 189487. 32 g 200 mm[Hg] 100 mm[Hg] Not Available Counts include 234 beds at the [facility] 04:49:24 Date Recorded Body mass index (BMI) Body height Body weight Provider Name and Address Organization Details Last Updated DateTime 08/10/2021 37.6 kg/m2 172.72 cm 905691.32 g Not Available Counts include 234 beds at the [facility] 11/20/2022 04:49:25 Date Recorded Body mass index (BMI) Body height Body weight Provider Name and Address Organization Details Last Updated DateTime 03/15/2022 37.6 kg/m2 172.72 cm 690108.32 g Not Available Counts include 234 beds at the [facility] 11/20/2022 04:49:25 Date Recorded Body height Body mass index (BMI) Body weight Body temperature Provider Name and Address Organization Details Last Updated DateTime 04/08/2024 180.34 cm 36.3 kg/m2 059831.02 g 97.7 [degF] BOGDAN Piña [place] - [facility] [employer] [facility] 04/08/2024 16:39:32 Social History Question Answer Notes LastModified by Organizat ion Details LastModified Time Tobacco Smoking Status Former Smoker Not Available Counts include 234 beds at the [facility] 11/20/2022 04:41:42 What Is Your Level Of Alcohol Consumption? None [email or web address] Information not available 04/08/2024 Sex: Unknown Functional Status None recorded. Mental Status None recorded. Family History Nothing Reported Notes:NO ENT Medical History Condition Response DIABETES, TYPE Y HYPERTENSION Y DIZZINESS Y Gynecological HistoryNo gynecological history recorded. Obstetrics History GPAL:G 0 P 0 0 0 0 Past Encounters Encounter ID Performer Location Encounter Start Date Encounter Closed Date Diagnosis/Indication Diagnosis SNOMED-CT Code Diagnosis ICD10 Code Diagnosis Note [id number] [facility] DEFAULT_1 _1 , 01/05/2021 00:00:00 01/08/2021 13:50:03 [id number] [facility] DEFAULT_1 _1 , 05/04/2021 00:00:00 05/14/2021 10:19:19 [id number] [facility] DEFAULT_1 _1 , 08/10/2021 00:00:00 08/12/2021 23:39:09 [id number] [facility] DEFAULT_1 _1 , 03/15/2022 00:00:00 03/19/2022 13:33:43 [id number] Darinel Payan MD [facility] [place] [address] [place] [address] 04/08/2024 15:46:17 05/05/2024 11:34:18 Chronic tonsillitis 84222482 J35.01 Health Concerns Section Related Observation LastModified by Organization Detai ls LastModified Time None Recorded Concern Status LastModified by Organization Details LastModified Time None Recorded Advance Directives Directive None Recorded Payers Encounter Date Sequence Insurance Name Policy Number Policy Mora Covered Member ID Mora Member ID Guarantor Name 04/08/2024 1 [facility] [id number] Cruzito Brice [id number] Cruzito Brice Notes Date Note Type Note Provider Name and Address Organization Details Recorded Time 04/08/2024 text/html this 68-year-old has history of chronic tonsillitis with tonsil stones and sleep apnea. She is on CPAP. Darinel Payan MD [address] [place] [address], [place], [address], [facility] [employer] 04/08/2024 16:49:07 OBGyn Episode No OBEpisode recorded.
--- OUTSIDE RECORDS SUMMARY | 2025-01-26 09:17 | XMS_ITS | Clinical Summary ---
Author Organization [facility] Address [facility] [place] [address] Care Team Providers Care Stock Preparer Name Role Phone Kalee Modi NP Primary Care Provider [phone] Allergies No known active allergies Medications metFORMIN (GLUCOPHAGE) 1000 MG tablet Take 1 tablet (1,000 mg total) by mouth 2 (two) times daily with meals. 2 Active famotidine (PEPCID) 40 MG tabletIndications :Atrial fibrillation, unspecified type (CMS/HCC HHS/HCC) Take 1 tablet (40 mg total) by mouth daily. 3 Active OZEMPIC 2 mg/dose injection (PEN) 4 Active atorvastatin (LIPITOR) 80 MG tablet TAKE ONE TABLET BY MOUTH DAILY AT 5 PM 4 Active glimepiride (AMARYL) 2 MG tablet TAKE ONE TABLET BY MOUTH DAILY AT 9 AM FOR 30 DAYS 4 Active hydrOXYzine (ATARAX) 25 MG tablet TAKE ONE TABLET BY MOUTH DAILY AT 9 PM AT BEDTIME 4 Active TRINTELLIX 10 MG tablet TAKE 1 TABLET BY MOUTH EVERY DAY FOR DEPRESSION OR ANXIETY 4 Active metoprolol succinate ER (TOPROL-XL) 50 MG 24 hr tabletIndications :Atrial fibrillation, unspecified type (CMS/HCC HHS/HCC),Essentia l (primary) hypertension Take 1 tablet (50 mg total) by mouth daily. 90 tablet 1 4 Active ELIQUIS 5 MG tabletIndications :Atrial fibrillation, unspecified type (CMS/HCC HHS/HCC) Take 1 tablet (5 mg total) by mouth 2 (two) times daily. 180 tablet 2 4 Active losartan (COZAAR) 100 MG tablet TAKE 1 TABLET(100 MG) BY MOUTH DAILY 90 tablet 1 4 Active Active Problems Problem Noted Date Diagnosed Date Morbid (severe) obesity due to excess calories 0 06/21/2024 Other thrombophilia 06/21/2024 Atrial fibrillation with RVR ([facility]) 1 11/02/2021 Overview (11/25/2022): Last Assessment & Plan: With significant palpitation with atrial fibrillation rapid ventricular response, rate now is well controlled on Cardizem IV will switch to oral Cardizem, and she needs to be on anticoagulation was started on Eliquis 5 mg twice daily Chest pain 12/06/2021 Hypertensive urgency 12/06/2021 Overview (11/25/2022): Last Assessment & Plan: Blood pressure now is well controlled, continue with Cardizem but was switched to oral, stop Norvasc and increase metoprolol and losartan Type 2 diabetes mellitus wit hout complication, with long-term current use of insulin ([facility]) 12/06/2021 Diabetic peripheral neuropat hy associated with type 2 diabetes mellitus ([facility]) 11/30/2018 Family History Medical History Relation Comments Diabetes Mother Hypertension Mother Thyroid Disease Sister 2 Relation Status Comments Mother Sister 1 Sister 2 Alive Social History Tobacco Use Types Packs/Day Years Used Date Smoking Tobacco: Former Cigarettes Q uit: 1997 Smokeless Tobacco: Never Comments Unknown Sex and Gender Information Value Date Recorded Sex Assigned at Not on file Legal Sex Female 9:58 AM BOX PULLER Gender Identity Female 11/16/2019 9:59 AM BOX PULLER Sexual Orientation Not on file Last Filed Vital Signs Vital Sign Reading Time Taken Comments Blood Pressure 132/82 04/21/2024 11:51 AM CDT Pulse 80 04/21/2024 11:51 AM CDT Temperature - - Respiratory Rate - - Oxygen Saturation 96% 04/21/2024 11: 51 AM CDT Inhaled Oxygen Concentration - - Weight 117.1 kg (258 lb 3.2 oz) 024 12:26 PM CDT Height 172.7 cm (5' 8 ) 06/21/2024 12:2 6 PM CDT Body Mass Index 39.26 06/21/2024 12:26 PM CDT Plan of Treatment Health Maintenance Due Date Last Done Comments Colorectal Cancer Screening Colonoscopy (10 Years) 1955 Kidney Health Evaluation 1955 Diabetes: Retinopathy Eye Exam 1973 Hepatitis C 1973 DTaP, Tdap and Td Vaccines (1 - Tdap) 1974 Pneumococcal Vaccine: 50+ Years (1 of 2 - PCV) 1974 Mammogram Screening 1995 Zoster Vaccines (1 of 2) 2005 RSV Immunization or 60+ Years (1 - Risk 60-74 years 1-dose series) 2015 Annual Medicare Wellness Visit 2020 Dexa Scan (General) 2020 Lipid Panel 12/06/2022 12/06/2021 Hemoglobin A1C 04/30/2023 10/31/2022, 12/06/2021 COVID-19 Vaccine ( season) 2024 01/05/2021, 12/08/2020 AAA SCREENING Completed 10/26/2022, 12/2022, 04/02/2020, Additional history exists Meningococcal B Vaccine Aged Out No l onger eligible based on patient's age to complete this topic Meningococcal Vaccine Aged Out No aracelis thad eligible based on patient's age to complete this topic RSV Immunizations Under 20 Months Aged Out No longer eligible based on patient's age to complete this topic Procedures Procedure Name Priority Date/Time Associated Diagnosis Comments HEMOGLOBIN, GLYCOSYLATED Routine 10/31/2022 from Last 3 Months or Most Recently Relevant to Health Maintenance Results * HEMOGLOBIN, GLYCOSYLATED (10/31/2022) HGB A1C 7.4 % 10/31/2022 us Default History Genericprovider LABORATORY Final Result from Last 3 Months or Most Recently Relevant to Health Maintenance Insurance [facility] Care Teams Stock Preparer Relationship Specialty Start Date End Date Kalee Modi NP PCP - General Nurse Practitioner Family 11/16/19
--- OUTSIDE RECORDS SUMMARY | 2025-01-26 09:17 | XMS_ITS | Encounter Summary ---
Author Organization [facility] Facility Care Team Providers Care Industrial Manufacturing Technician Name Role Phone Kalee Modi NP Primary Care Provider [phone] Encounter Details Date Type Department Care Team (Latest Contact Info) Description 07/28/2018 Orders Only [facility] CLIN[facility] ProviderEdita MD [address] [place] [address] Social History Tobacco Use Types Packs/Day Years Used Date Smoking Tobacco: Never Assessed Comments Unknown Sex and Gender Information Value Date Recorded Sex Assigned at Not on file Legal Sex Female 6:13 AM MEASUREMENT DEPARTMENT CHIEF CLERK Gender Identity Not on file Sexual Orientation Not on file documented as of this encounter Plan of Treatment Not on file documented as of this encounter Procedures Procedure Name Priority Date/Time Associated Diagnosis Comments CARDIOLOGY REPORT 07/30/2018 12: 00 AM MEASUREMENT DEPARTMENT CHIEF CLERK documented in this encounter Results * CARDIOLOGY REPORT (07/30/2018 12:00 AM MEASUREMENT DEPARTMENT CHIEF CLERK) Anatomical Region Laterality Modality Other Narrative 07/30/2018 12:00 AM MEASUREMENT DEPARTMENT CHIEF CLERK Ordered by an unspecified provider. us Historical Provider [facility] Final Result documented in this encounter Visit Diagnoses Not on filedocumented in this encounter Additional Health Concerns Infection Onset Date Last Indicated Resolved Time COVID: Suspected 04/02/2021 04/02/2021 04/05/2021 10:12 AM CDT documented as of this encounter Care Teams Industrial Manufacturing Technician Relationship Specialty Start Date End Date Kalee Modi NP PCP - General 05/03/20 documented as of this encounter
--- OUTSIDE RECORDS SUMMARY | 2025-01-26 09:17 | XMS_ITS | Encounter Summary ---
Author Organization [facility] Facility Care Team Providers Care Highway Safety Engineer Name Role Phone Kalee Modi NP Primary Care Provider [phone] Encounter Details Date Type Department Care Team (Latest Contact Info) Description 07/09/2018 Orders Only [facility] CLINCONV ProviderEdita MD [address] [place] [address] Social History Tobacco Use Types Packs/Day Years Used Date Smoking Tobacco: Never Assessed Comments Unknown Sex and Gender Information Value Date Recorded Sex Assigned at Not on file Legal Sex Female 6:13 AM INTEGRATION MANAGER Gender Identity Not on file Sexual Orientation Not on file documented as of this encounter Plan of Treatment Not on file documented as of this encounter Procedures Procedure Name Priority Date/Time Associated Diagnosis Comments CARDIOLOGY REPORT 07/13/2018 12: 00 AM CDT documented in this encounter Results * CARDIOLOGY REPORT (07/13/2018 12:00 AM CDT) Anatomical Region Laterality Modality Other Narrative 07/13/2018 12:00 AM CDT Ordered by an unspecified provider. us Historical Provider [facility] Final Result documented in this encounter Visit Diagnoses Not on filedocumented in this encounter Additional Health Concerns Infection Onset Date Last Indicated Resolved Time COVID: Suspected 04/02/2021 04/02/2021 04/05/2021 10:12 AM CDT documented as of this encounter Care Teams Highway Safety Engineer Relationship Specialty Start Date End Date Kalee Modi NP PCP - General 05/03/20 documented as of this encounter
--- OUTSIDE RECORDS SUMMARY | 2025-01-26 09:17 | XMS_ITS | Encounter Summary ---
Author Organization [facility] Address [address] [place] [address] Care Team Providers Care Research Food Technologist Name Role Phone Kalee Modi WOOD EXPERIMENTAL MECHANIC Primary Care Provider [phone] Encounter Details Date Type Department Care Team (Late st Contact Info) Description 11/19/2022 [facility] [address] Suhail Bond MA Social History Tobacco Use Types Packs/Day Years Used Date Smoking Tobacco: Never Assessed Comments Unknown Sex and Gender Information Value Date Recorded Sex Assigned at Not on file Legal Sex Female 9:58 AM SENIOR LINUX SYSTEMS ENGINEER Gender Identity Female 11/16/2019 9:59 AM SENIOR LINUX SYSTEMS ENGINEER Sexual Orientation Not on file documented as of this encounter Plan of Treatment Not on file documented as of this encounter Procedures Procedure Name Priority Date/Time Associated Diagnosis Comments HEMOGLOBIN, GLYCOSYLATED Routine 10/31/2022 documented in this encounter Results * HEMOGLOBIN, GLYCOSYLATED (10/31/2022) HGB A1C 7.4 % 10/31/2022 us Default History Genericprovider LABORATORY Final Result documented in this encounter Visit Diagnoses Not on filedocumented in this encounter Care Teams Research Food Technologist Relationship Specialty Start Date End Date Kalee Modi NP PCP - General Nurse Practitioner Family 11/16/19 documented as of this encounter
--- OUTSIDE RECORDS SUMMARY | 2025-01-26 09:17 | XMS_ITS | Encounter Summary ---
Author Organization [facility] Care Team Providers Care Accountant Cost Name Role Phone Kalee Modi NP Primary Care Provider [phone] Encounter Details Date Type Department Care Team (Latest Contact Info) Description 07/13/2018 Orders Only [facility] CLINCONV ProviderEdita MD [address] [place] [id number] Social History Tobacco Use Types Packs/Day Years Used Date Smoking Tobacco: Never Assessed Comments Unknown Sex and Gender Information Value Date Recorded Sex Assigned at Not on file Legal Sex Female 6:13 AM PULL TAB DEALER Gender Identity Not on file Sexual Orientation [...] documented as of this encounter Care Teams Accountant Cost Relationship Specialty Start Date End Date Kalee Modi NP PCP - General 05/03/20 documented as of this encounter
--- OUTSIDE RECORDS SUMMARY | 2025-01-26 09:17 | XMS_ITS | Encounter Summary ---
Author Organization [facility] Care Team Providers Care Tire Repair Mechanic Name Role Phone Kalee Modi NP Primary Care Provider [phone] Encounter Details Date Type Department Care Team (Latest Contact Info) Description 07/08/2018 Orders Only [facility] CLINCONV ProviderEdita MD [address] [place] [id number] Social History Tobacco Use Types Packs/Day Years Used Date Smoking Tobacco: Never Assessed Comments Unknown Sex and Gender Information Value Date Recorded Sex Assigned at Not on file Legal Sex Female 6:13 AM STRAIGHTEDGE MAN Gender Identity Not on file Sexual Orientation [...] documented as of this encounter Care Teams Tire Repair Mechanic Relationship Specialty Start Date End Date Kalee Modi NP PCP - General 05/03/20 documented as of this encounter
== END 2025-01-26 08:59 | disposition home or self-care (01) ==
LOC: ANHIMG 08:59
PROVIDERS: PCP Nurse Practitioner Family; Visit Provider Nurse Practitioner Family
DX: Z12.31 Encounter for screening mammogram for malignant neoplasm of breast (principal); Z78.0 Asymptomatic menopausal state; M85.852 Other specified disorders of bone density and structure, left thigh; M85.851 Other specified disorders of bone density and structure, right thigh
CPT/HCPCS: 77063; 77067; 77080